=== PATIENT | male | born 1985 | race Caucasian/White ===

== ENCOUNTER 2017-01-17 16:10 | Inpatient (IN) | payer OTHER ==
[2017-01-17 16:44] VITALS: BMI 21.9
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
[2017-01-17] MEDS ORDERED: ACETAMINOPHEN 325 MG TABLET (FP) PO PRN (17:45)
[2017-01-17] MEDS ORDERED: guaiFENesin/D-METHORPHAN HB 10 ML UNIT-DOSE CUPS PO PRN (17:45)
[2017-01-17] MEDS ORDERED: MAGNESIUM CITRATE 300 ML BOTTLE PO PRN (17:45)
[2017-01-17] MEDS ORDERED: NICOTINE POLACRILEX 2 MG GUM BUC PRN (17:45)
[2017-01-17] MEDS ORDERED: MAGNESIUM HYDROX 2400MG/30ML ORAL SUSPENSION 30 ML CUP PO PRN (17:45)
[2017-01-17] MEDS ORDERED: MENTHOL/PHENOL 1 EACH UD MM PRN (17:45)
[2017-01-17] MEDS ORDERED: P-EPHED 60MG/TRIPROLIDI 2.5MG TABLET PO PRN (17:45)
[2017-01-17] MEDS ORDERED: METHADONE HCL 10 MG TABLET (FOR DETOX USE ONLY) PO ONE ×2 (17:45→23:00)
[2017-01-17] MEDS ORDERED: LOPERAMIDE HCL 2 MG CAPSULE PO PRN (17:45)
[2017-01-17] MEDS: diazePAM 5 MG TABLET PO PRN (19:55)
[2017-01-17] MEDS: NICOTINE 21 MG/24 HOURS TOPICAL PATCH TD SCH (19:56)
[2017-01-17] MEDS: diphenhydrAMINE HCL 50 MG CAPSULE PO PRN (22:19)
[2017-01-17] MEDS: THIAMINE HCL 100 MG TABLET (FP) PO SCH (22:19)
[2017-01-18] MEDS: diazePAM 5 MG TABLET PO PRN ×4 (02:56→22:03)
[2017-01-18] MEDS: hydrOXYzine PAMOATE 50 MG CAPSULE (FP) PO PRN ×2 (05:21→18:54)
[2017-01-18] MEDS ORDERED: METHADONE HCL 10 MG TABLET (FOR DETOX USE ONLY) PO ONE (10:00)
[2017-01-18] MEDS: NICOTINE 21 MG/24 HOURS TOPICAL PATCH TD SCH (10:13)
[2017-01-18] MEDS: PRENATAL VITAMINS W/ FOLIC ACID TABLET (FP) PO SCH (10:13)
--- NOTE | 2017-01-18 10:59 | EKG ---
Test Reason : Blood Pressure : / mmHG Vent. Rate : 063 BPM Atrial Rate : 063 BPM P-R Int : 146 ms QRS Dur : 100 ms QT Int : 400 ms P-R-T Axes : 062 079 067 degrees QTc Int : 409 ms NORMAL SINUS RHYTHM NORMAL ECG NO PREVIOUS ECGS AVAILABLE Confirmed by MARIA ESTHER MCCRACKEN MD ([id number]) on 01/18/2017 10:58:28 AM Referred By: Confirmed By:MARIA ESTHER MCCRACKEN MD
--- NOTE | 2017-01-18 13:57 | PN ---
BHS COWS - Scale Resting Pulse: 0= MS 80 or Below Sweatin= Beads of Sweat on Face Restless Observation: 3= Extraneous Movement Pupil Size: 0= Normal to Room Light Bone or Joint Aches: 2= Severe Diffuse Aches Runny Nose/ Eye Tearin= Runny Nose/Eyes GI Upset > 30mins: 3= Vomiting/Diarrhea Tremor Observation of Outstretched Hands: 2= Slight Tremor Visible Yawning Observation: 0= None Anxiety or Irritability: 2=Irritable/Anxious Goose Flesh Skin: 0=Smooth Skin COWS Score: 17 S Progress Note (SOAP) Subjective: N/V, stomach ache, sweating, interrupted sleep Objective: 01/18/17 13:55 Last Vital Signs Temp Pulse Resp BP Pulse Ox 97.0 F L 68 20 129/86 01/18/17 13:28 01/18/17 13:28 01/18/17 13:28 01/18/17 13:28 Admission labs in progress Assessment: 01/18/17 13:56 Withdrawal symptoms Plan: Continue detox, encouraged to drink lots of water Follow up on admission lab results (in progress)
[2017-01-18 14:19] LABS: MCH 29.1 pg (25.7-33.7); MCHC 33.1 g/dl (32.0-35.9); MEAN CELL VOLUME 87.9 fl (80-96); MEAN PLT VOLUME 9.4 fl (7.5-11.1); PLATELET COUNT 192 K/MM3 (134-434); RDW 14.1 % (11.9-15.9); WHITE BLOOD COUNT 8.9 K/mm3 (4.0-10.0)
[2017-01-18 14:21] LABS: URINE APPEARANCE CLEAR; URINE BILIRUBIN NEGATIVE (NEGATIVE); URINE BLOOD NEGATIVE (NEGATIVE); URINE COLOR LTYELLOW; URINE GLUCOSE (UA) NEGATIVE (NEGATIVE); URINE KETONE NEGATIVE (NEGATIVE); URINE LEUK ESTERASE NEGATIVE (NEGATIVE); URINE NITRITE NEGATIVE (NEGATIVE); URINE PROTEIN NEGATIVE (NEGATIVE); URINE UROBILINOGEN NEGATIVE E.U./dl (0.2-1.0)
[2017-01-18 14:30] LABS: CALCIUM 9.6 mg/dL (8.5-10.1)
[2017-01-18 14:36] LABS: ALBUMIN 4.1 g/dl (3.4-5.0); ALK PHOS 77 U/L (45-117); ANION GAP 12 (8-16); BILIRUBIN,TOTAL 0.6 mg/dL (0.2-1.0); CO2 28 mmol/L (21-32); CREATININE 1.1 mg/dL (0.7-1.3); GLUCOSE,RANDOM 71 mg/dL (74-106); SGOT/AST 9 U/L (15-37); SGPT/ALT 19 U/L (12-78); TOT PROT 7.5 g/dl (6.4-8.2)
[2017-01-18 14:41] LABS: HIV 1 & 2 AB NEGATIVE; HIV 1 AGp24 NEGATIVE
[2017-01-18 14:59] LABS: SICKLE CELL SCREEN NEGATIVE (NEGATIVE)
[2017-01-18] MEDS: THIAMINE HCL 100 MG TABLET (FP) PO SCH (22:03)
[2017-01-18] MEDS: diphenhydrAMINE HCL 50 MG CAPSULE PO PRN (22:04)
[2017-01-19] MEDS: diazePAM 5 MG TABLET PO PRN ×4 (02:43→22:05)
--- NOTE | 2017-01-19 09:00 | PN ---
S COWS - Scale Resting Pulse: 0= RI 80 or Below Sweatin= Chills/Flushing Restless Observation: 3= Extraneous Movement Pupil Size: 2= Moderately Dilated Bone or Joint Aches: 4=Acute Joint/Muscle Pain Runny Nose/ Eye Tearin= Nasal Congestion GI Upset > 30mins: 1= Stomach Cramp Tremor Observation of Outstretched Hands: 1= Tremor [place], Not Seen Yawning Observation: 1= 1-2x During Session Anxiety or Irritability: 2=Irritable/Anxious Goose Flesh Skin: 0=Smooth Skin COWS Score: 16 S Progress Note (SOAP) Subjective: ANXIETY,SWEATS,MUSCLE CRAMPS,INTERMITTENT SLEEP-BENADRYL NOT EFFECTIVE. Objective: 01/19/17 10:31 Vital Signs Temperature 97.8 F 01/19/17 09:19 Pulse Rate 63 01/19/17 09:19 Respiratory Rate 18 01/19/17 09:19 Blood Pressure 108/69 01/19/17 09:19 O2 Sat by Pulse Oximetry (%) Laboratory Last Values WBC 8.9 K/mm3 (4.0-10.0) 01/18/17 07:12 RBC 5.15 M/mm3 (4.00-5.60) 01/18/17 07:12 Hgb 15.0 GM/dL (11.7-16.9) 01/18/17 07:12 Hct 45.2 % (35.4-49) 01/18/17 07:12 MCV 87.9 fl (80-96) 01/18/17 07:12 MCHC 33.1 g/dl (32.0-35.9) 01/18/17 07:12 RDW 14.1 % (11.9-15.9) 01/18/17 07:12 Plt Count 192 K/MM3 (134-434) 01/18/17 07:12 MPV 9.4 fl (7.5-11.1) 01/18/17 07:12 Sickle Cell Screen Negative (NEGATIVE) 01/18/17 07:12 Sodium 144 mmol/L (136-145) 01/18/17 07:12 Potassium 3.9 mmol/L (3.5-5.1) 01/18/17 07:12 Chloride 104 mmol/L (98-107) 01/18/17 07:12 Carbon Dioxide 28 mmol/L (21-32) 01/18/17 07:12 Anion Gap 12 (8-16) 01/18/17 07:12 BUN 9 mg/dL (7-18) 01/18/17 07:12 Creatinine 1.1 mg/dL (0.7-1.3) 01/18/17 07:12 Creat Clearance w eGFR > 60 (>60) 01/18/17 07:12 Random Glucose 71 mg/dL (74-106) L 01/18/17 07:12 Calcium 9.6 mg/dL (8.5-10.1) 01/18/17 07:12 Total Bilirubin 0.6 mg/dL (0.2-1.0) 01/18/17 07:12 AST 9 U/L (15-37) L 01/18/17 07:12 ALT 19 U/L (12-78) 01/18/17 07:12 Alkaline Phosphatase 77 U/L (45-117) 01/18/17 07:12 Total Protein 7.5 g/dl (6.4-8.2) 01/18/17 07:12 Albumin 4.1 g/dl (3.4-5.0) 01/18/17 07:12 Urine Color Ltyellow 01/18/17 07:12 Urine Appearance Clear 01/18/17 07:12 Urine pH 6.0 (5.0-8.0) 01/18/17 07:12 Ur Specific [place] 1.015 (1.005-1.025) 01/18/17 07:12 Urine Protein Negative (NEGATIVE) 01/18/17 07:12 Urine Glucose (UA) Negative (NEGATIVE) 01/18/17 07:12 Urine Ketones Negative (NEGATIVE) 01/18/17 07:12 Urine Blood Negative (NEGATIVE) 01/18/17 07:12 Urine Nitrite Negative (NEGATIVE) 01/18/17 07:12 Urine Bilirubin Negative (NEGATIVE) 01/18/17 07:12 Urine Urobilinogen Negative E.U./dl (0.2-1.0) 01/18/17 07:12 Ur Leukocyte Esterase Negative (NEGATIVE) 01/18/17 07:12 RPR Titer Nonreactive (NONREACTIVE) 01/18/17 07:12 HIV 1&2 Antibody Screen Negative 01/18/17 07:12 HIV P24 Antigen Negative 01/18/17 07:12 Assessment: 01/19/17 10:31 WITHDRAWAL SX Plan: CONTINUE DETOX D/C BENADRYL VISTARIL AND FLEXERIL DIRECTED
[2017-01-19] MEDS ORDERED: METHADONE HCL 5 MG TABLET (FOR DETOX USE ONLY) PO ONE (10:00)
[2017-01-19] MEDS: PRENATAL VITAMINS W/ FOLIC ACID TABLET (FP) PO SCH (10:09)
[2017-01-19] MEDS: IBUPROFEN 400 MG TABLET (FP) PO PRN (10:10)
[2017-01-19] MEDS: NICOTINE 21 MG/24 HOURS TOPICAL PATCH TD SCH (10:12)
[2017-01-19] MEDS ORDERED: hydrOXYzine PAMOATE 50 MG CAPSULE (FP) PO PRN (10:28)
[2017-01-19] MEDS: CYCLOBENZAPRINE HCL 10 MG TABLET (FP) PO SCH ×2 (14:47→22:04)
[2017-01-19] MEDS: MAG HYDROX/AL HYDROX/SIMETH 30 ML UNIT-DOSE CUP PO PRN (14:48)
[2017-01-19] MEDS: THIAMINE HCL 100 MG TABLET (FP) PO SCH (22:04)
[2017-01-20] MEDS: hydrOXYzine PAMOATE 50 MG CAPSULE (FP) PO PRN (01:33)
[2017-01-20] MEDS: MAG HYDROX/AL HYDROX/SIMETH 30 ML UNIT-DOSE CUP PO PRN ×3 (01:36→20:53)
[2017-01-20] MEDS: diazePAM 5 MG TABLET PO PRN ×4 (02:13→14:22)
[2017-01-20] MEDS: CYCLOBENZAPRINE HCL 10 MG TABLET (FP) PO SCH ×3 (05:36→22:03)
[2017-01-20] MEDS: PRENATAL VITAMINS W/ FOLIC ACID TABLET (FP) PO SCH (09:45)
[2017-01-20] MEDS: NICOTINE 21 MG/24 HOURS TOPICAL PATCH TD SCH (09:45)
[2017-01-20] MEDS ORDERED: METHADONE HCL 5 MG TABLET (FOR DETOX USE ONLY) PO ONE (10:00)
--- NOTE | 2017-01-20 10:31 | PN ---
BHS Progress Note (SOAP) Subjective: ANXIETY,HEARTBURN,INTERMITTENT SLEEP. Objective: 01/20/17 10:31 Vital Signs Temperature 97.0 F L 01/20/17 09:27 Pulse Rate 78 01/20/17 09:27 Respiratory Rate 18 01/20/17 09:27 Blood Pressure 137/87 01/20/17 09:27 O2 Sat by Pulse Oximetry (%) Assessment: 01/20/17 10:31 WITHDRAWAL SX Plan: CONTINUE DETOX
--- NOTE | 2017-01-20 14:00 | CONSULT ---
[facility] Psychiatric Consult - Data Date of interview: 01/20/17 Admission source: [facility] Identifying data: First admission to [facility] for this 31 y/o male seeking detox treatment for heroin,cocaine (crack) and marijuana dependence) .Patient is ,a father of one,homeless,unemployed and supported on food stamps. Substance Abuse History: - Smoking Cessation. Smoking history: Current every day smoker. Aproximately how many cigarettes per day: 20. Hx Chewing Tobacco Use: No. Initiated information on smoking cessation: Yes. 'Breaking Loose' booklet given: 01/17/17. - Substance & Tx. History. Hx Alcohol Use: No. Hx Substance Use: Yes. Substance Use Type: Cocaine, Heroin, Marijuana. Hx Substance Use Treatment: Yes (detox once,buprenorphine maitenance last year). - Substances Abused. Crack. Route: Smoking. Frequency: Daily. Amount used : 2 1/2 gm. Age of first use: 13. Date of Last Use: 01/15/17. Heroin. Route: Inhalation. Frequency: Daily. Amount used: 6-10 bags. Age of first use : 25 (started percocet at 21 y/o). Date of Last Use: 01/16/17. Marijuana/ Hashish. Route: Smoking. Frequency: 1-3 times last 30 days. Amount used: few pulls. Age of first use: 18. Date of Last Use: 01/16/17. Confirmed by patient. Medical History: History of arthroscopic surgery (right knee) and two sessions of hemodialysis (acute renal failure due to rhabdomyolysis). Psychiatric History: No reported history of psychiatric hospitalizations.No history of psychiatric OPD care.Mr Bhat denies being on any psychotropic medications (with the exception of opiates or xanax).Patient denies history of suicide attempts. Physical/Sexual Abuse/Trauma History: Patient denies. Additional Comment: Urine Drug Screen Results: THC-Marijuana, ABBE-Cocaine, OPI- Opiates.Noted. Mental Status Exam - Mental Status Exam Alert and Oriented to: Time, Place, Person Cognitive Function: Good Patient Appearance: Unkempt, Disheveled Mood: Anxious, Apprehensive Affect: Appropriate, Normal Range Patient Behavior: Fatigued, Cooperative (medication-seeking) Speech Pattern: Clear, Appropriate Voice Loudness: Normal Thought Process: Goal Oriented Thought Disorder: Not Present Hallucinations: Denies Suicidal Ideation: Denies Homicidal Ideation: Denies Insight/Judgement: Poor Sleep: Poorly, Difficulty falling asleep Appetite: Good Muscle strength/Tone: Normal Gait/Station: Normal Psychiatric Findings - Problem List ([place] 1, 2,3) (1) Cannabis dependence, uncomplicated Current Visit: Yes Status: Acute (2) Cocaine dependence, uncomplicated Current Visit: Yes Status: Acute (3) Opioid dependence with withdrawal Current Visit: Yes Status: Acute (4) Nicotine dependence Current Visit: Yes Status: Acute (5) Substance induced mood disorder Current Visit: Yes Status: Acute (6) Insomnia Current Visit: Yes Status: Acute - Initial Treatment Plan Initial Treatment Plan: Psychoeducation.Detoxification.Ambien 10 mg po hs prn.Patient is made aware of potential for parasomnias.Observation.No script for ambien will be issued at discharge (patient aware).He is in agreement with this careplan.
[2017-01-20] MEDS: ZOLPIDEM TARTRATE 10 MG TABLET (PARK CARE ONLY) PO PRN (22:01)
[2017-01-20] MEDS: THIAMINE HCL 100 MG TABLET (FP) PO SCH (22:01)
[2017-01-21] MEDS: hydrOXYzine PAMOATE 50 MG CAPSULE (FP) PO PRN ×3 (01:06→10:06)
[2017-01-21] MEDS: CYCLOBENZAPRINE HCL 10 MG TABLET (FP) PO SCH ×3 (05:22→22:05)
[2017-01-21] MEDS: IBUPROFEN 400 MG TABLET (FP) PO PRN (05:25)
[2017-01-21] MEDS ORDERED: METHADONE HCL 10 MG TABLET (FOR DETOX USE ONLY) PO ONE (10:00)
[2017-01-21] MEDS: NICOTINE 21 MG/24 HOURS TOPICAL PATCH TD SCH (10:06)
[2017-01-21] MEDS: PRENATAL VITAMINS W/ FOLIC ACID TABLET (FP) PO SCH (10:06)
--- NOTE | 2017-01-21 10:11 | PN ---
BHS Progress Note (SOAP) Subjective: ANXIETY, DECREASED BODY ACHES,SWEATS, INTERMITTENT SLEEP. Objective: 01/21/17 10:11 Vital Signs Temperature 97.7 F 01/21/17 09:20 Pulse Rate 96 H 01/21/17 09:20 Respiratory Rate 20 01/21/17 09:20 Blood Pressure 125/81 01/21/17 09:20 O2 Sat by Pulse Oximetry (%) Assessment: 01/21/17 10:11 WITHDRAWAL SX Plan: CONTINUE DETOX
[2017-01-21] MEDS: MAG HYDROX/AL HYDROX/SIMETH 30 ML UNIT-DOSE CUP PO PRN ×2 (13:31→21:16)
[2017-01-21] MEDS ORDERED: LIDOCAINE VISCOUS 2% ORAL/TOP 20 ML UNIT-DOSE CUP MM PRN (21:48)
[2017-01-21] MEDS: THIAMINE HCL 100 MG TABLET (FP) PO SCH (22:05)
[2017-01-21] MEDS: ZOLPIDEM TARTRATE 10 MG TABLET (PARK CARE ONLY) PO PRN (22:06)
[2017-01-22] MEDS: hydrOXYzine PAMOATE 50 MG CAPSULE (FP) PO PRN (01:21)
[2017-01-22] MEDS: IBUPROFEN 400 MG TABLET (FP) PO PRN (01:21)
[2017-01-22] MEDS ORDERED: METHADONE HCL 5 MG TABLET (FOR DETOX USE ONLY) PO ONE (06:00)
[2017-01-22] MEDS: CYCLOBENZAPRINE HCL 10 MG TABLET (FP) PO SCH (06:00)
[2017-01-22] MEDS: PRENATAL VITAMINS W/ FOLIC ACID TABLET (FP) PO SCH (09:58)
[2017-01-22] MEDS: NICOTINE 21 MG/24 HOURS TOPICAL PATCH TD SCH (09:59)
--- NOTE | 2017-01-22 09:59 | DS ---
[facility] Detox Discharge Summary Admission Date: 01/17/17 Discharge Date: 01/22/17 - History Present History: Cannabis Dependence, Cocaine Dependence, Opioid Dependence Additional Comments: DETOX COMPLETED. ALERT O X 3. NAD. Pertinent Past History: INSOMNIA - Physical Exam Results Vital Signs: Vital Signs Temperature 97.8 F 01/22/17 06:42 Pulse Rate 99 H 01/22/17 06:42 Respiratory Rate 18 01/22/17 06:42 Blood Pressure 120/80 01/22/17 06:42 O2 Sat by Pulse Oximetry (%) Pertinent Admission Physical Exam Findings: WITHDRAWAL SX Laboratory Last Values WBC 8.9 K/mm3 (4.0-10.0) 01/18/17 07:12 RBC 5.15 M/mm3 (4.00-5.60) 01/18/17 07:12 Hgb 15.0 GM/dL (11.7-16.9) 01/18/17 07:12 Hct 45.2 % (35.4-49) 01/18/17 07:12 MCV 87.9 fl (80-96) 01/18/17 07:12 MCHC 33.1 g/dl (32.0-35.9) 01/18/17 07:12 RDW 14.1 % (11.9-15.9) 01/18/17 07:12 Plt Count 192 K/MM3 (134-434) 01/18/17 07:12 MPV 9.4 fl (7.5-11.1) 01/18/17 07:12 Sickle Cell Screen Negative (NEGATIVE) 01/18/17 07:12 Sodium 144 mmol/L (136-145) 01/18/17 07:12 Potassium 3.9 mmol/L (3.5-5.1) 01/18/17 07:12 Chloride 104 mmol/L (98-107) 01/18/17 07:12 Carbon Dioxide 28 mmol/L (21-32) 01/18/17 07:12 Anion Gap 12 (8-16) 01/18/17 07:12 BUN 9 mg/dL (7-18) 01/18/17 07:12 Creatinine 1.1 mg/dL (0.7-1.3) 01/18/17 07:12 Creat Clearance w eGFR > 60 (>60) 01/18/17 07:12 Random Glucose 71 mg/dL (74-106) L 01/18/17 07:12 Calcium 9.6 mg/dL (8.5-10.1) 01/18/17 07:12 Total Bilirubin 0.6 mg/dL (0.2-1.0) 01/18/17 07:12 AST 9 U/L (15-37) L 01/18/17 07:12 ALT 19 U/L (12-78) 01/18/17 07:12 Alkaline Phosphatase 77 U/L (45-117) 01/18/17 07:12 Total Protein 7.5 g/dl (6.4-8.2) 01/18/17 07:12 Albumin 4.1 g/dl (3.4-5.0) 01/18/17 07:12 Urine Color Ltyellow 01/18/17 07:12 Urine Appearance Clear 01/18/17 07:12 Urine pH 6.0 (5.0-8.0) 01/18/17 07:12 Ur Specific [place] 1.015 (1.005-1.025) 01/18/17 07:12 Urine Protein Negative (NEGATIVE) 01/18/17 07:12 Urine Glucose (UA) Negative (NEGATIVE) 01/18/17 07:12 Urine Ketones Negative (NEGATIVE) 01/18/17 07:12 Urine Blood Negative (NEGATIVE) 01/18/17 07:12 Urine Nitrite Negative (NEGATIVE) 01/18/17 07:12 Urine Bilirubin Negative (NEGATIVE) 01/18/17 07:12 Urine Urobilinogen Negative E.U./dl (0.2-1.0) 01/18/17 07:12 Ur Leukocyte Esterase Negative (NEGATIVE) 01/18/17 07:12 RPR Titer Nonreactive (NONREACTIVE) 01/18/17 07:12 HIV 1&2 Antibody Screen Negative 01/18/17 07:12 HIV P24 Antigen Negative 01/18/17 07:12 - Treatment Hospital Course: Detox Protocol Followed, Detoxed Safely, Responded well, Discharged Condition Good, Rehab Referral Accepted Patient has Accepted a Rehab Referral to: [facility] - Medication Discharge Medications: Ambulatory Orders NK [No Known Home Medication] 01/17/17 - Diagnosis (1) Cannabis dependence, uncomplicated Current Visit: Yes Status: Acute (2) Cocaine dependence, uncomplicated Current Visit: Yes Status: Acute (3) Insomnia Current Visit: Yes Status: Acute (4) Nicotine dependence Current Visit: Yes Status: Acute Qualifiers: Substance use status: in withdrawal (5) Opioid dependence with withdrawal Current Visit: Yes Status: Acute (6) Substance induced mood disorder Current Visit: Yes Status: Acute - AMA Did Patient Leave Against Medical Advice: No
[2017-01-22 10:40] VITALS: BP 131/86; PULSE 102; TEMP 97.3
== END 2017-01-22 11:59 | disposition other institution (70) | DRG 773 ==
LOC: YASAS 16:10 → Y3N 17:27
PROVIDERS: ADMIT Internal Medicine; ATTEND Internal Medicine
PROC: HZ2ZZZZ Detoxification Services for Substance Abuse Treatment (ICD-10-PCS; principal; 2017-01-22)
DX: F11.20 Opioid dependence, uncomplicated (principal); F14.20 Cocaine dependence, uncomplicated; F12.20 Cannabis dependence, uncomplicated; F17.210 Nicotine dependence, cigarettes, uncomplicated; F19.24 Other psychoactive substance dependence with psychoactive substance-induced mood disorder; G47.00 Insomnia, unspecified
CPT/HCPCS: 36415; 80053; 81003; 85027; 85660; 86593; 87389; 93005; 93010

== ENCOUNTER 2017-01-22 12:21 | Inpatient (IN) | payer OTHER ==
[2017-01-22] MEDS ORDERED: LOPERAMIDE HCL 2 MG CAPSULE PO PRN (12:32)
[2017-01-22] MEDS ORDERED: MAGNESIUM CITRATE 300 ML BOTTLE PO PRN (12:32)
[2017-01-22] MEDS ORDERED: MAGNESIUM HYDROX 2400MG/30ML ORAL SUSPENSION 30 ML CUP PO PRN (12:32)
[2017-01-22] MEDS ORDERED: guaiFENesin/D-METHORPHAN HB 10 ML UNIT-DOSE CUPS PO PRN (12:32)
[2017-01-22] MEDS ORDERED: MENTHOL/PHENOL 1 EACH UD MM PRN (12:32)
[2017-01-22] MEDS ORDERED: P-EPHED 60MG/TRIPROLIDI 2.5MG TABLET PO PRN (12:32)
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
--- NOTE | 2017-01-22 13:58 | HP ---
Psychiatrist Admission - Data Date of interview: 01/22/17 Admission source: [facility] Identifying data: Patient is 31 year old ,a father of one,homeless, unemployed and supported on food stamps. This is the first 5n inpatient reabilitation admission. Medical History: History of arthroscopic surgery (right knee) and two sessions of hemodialysis due to acute renal failure ( rhabdomyolysis).Smokes cigarettes 20 a day. Psychiatric History: Patient denies history of psyhciatric treatment, however reports he is unable to sleep, very anxious and having mood swings. Was seen by and put on Ambien, which patient reports was not effective, his sleep is interrupted and unfreshful. Physical/Sexual Abuse/Trauma History: Denies history of physical, sexual, and vebral abuse. Allergies/Adverse Reactions: Allergies Allergy/AdvReac Type Severity Reaction Status Date / Time No Known Allergies Allergy Verified 03/22/15 17:19 Date of last physical exam: 01/17/17 Concur with the findings of this exam: Yes - Substance Abuse/Tx History Hx Alcohol Use: No Hx Substance Use: Yes Substance Use Type: Cocaine (3-4 gr daily), Heroin (15 bags aily), Marijuana (2 times a week), Tranquilizers (xanax on and off) Hx Substance Use Treatment: Yes - Admission Criteria Previous failed treatment: Yes Poor recovery environment: Yes Comorbidities: Yes Lacks judgement: Yes Mental Status Exam - Mental Status Exam Alert and Oriented to: Time, Place, Person Cognitive Function: Grossly Intact Patient Appearance: Well Groomed Mood: Anxious Affect: Appropriate, Mood Congruent Patient Behavior: Appropriate, Cooperative Speech Pattern: Clear, Appropriate Voice Loudness: Normal Thought Process: Intact, Goal Oriented Thought Disorder: Not Present Hallucinations: Denies Suicidal Ideation: Denies Homicidal Ideation: Denies Insight/Judgement: Fair Sleep: Poorly, Difficulty falling asleep Appetite: Poor, Weight loss Muscle strength/Tone: Normal Gait/Station: Normal Psychiatric Findings - Problem List ([place] 1, 2,3) (1) Cocaine dependence, uncomplicated Current Visit: No Status: Acute (2) Insomnia Current Visit: No Status: Acute (3) Nicotine dependence Current Visit: No Status: Acute Qualifiers: Substance use status: in withdrawal (4) Substance induced mood disorder Current Visit: No Status: Acute (5) Sedative, hypnotic or anxiolytic abuse Current Visit: Yes Status: Acute - Initial Treatment Plan Initial Treatment Plan: discussed indications and properties of gabapentin and belsomra with the patient , he agreed to start, will continue to monitor progress.
[2017-01-22] MEDS: GABAPENTIN 100 MG CAPSULE (FP) PO SCH ×2 (14:39→21:15)
[2017-01-22] MEDS: SUVOREXANT 10 MG TABLET PO PRN (21:15)
[2017-01-22] MEDS: THIAMINE HCL 100 MG TABLET (FP) PO SCH (21:15)
[2017-01-23] MEDS: diphenhydrAMINE HCL 50 MG CAPSULE PO PRN (00:29)
[2017-01-23] MEDS: GABAPENTIN 100 MG CAPSULE (FP) PO SCH ×3 (06:37→21:15)
[2017-01-23] MEDS: ACETAMINOPHEN 325 MG TABLET (FP) PO PRN (07:57)
[2017-01-23] MEDS: NICOTINE 21 MG/24 HOURS TOPICAL PATCH TD SCH (09:42)
[2017-01-23] MEDS: PRENATAL VITAMINS W/ FOLIC ACID TABLET (FP) PO SCH (09:42)
[2017-01-23] MEDS: IBUPROFEN 400 MG TABLET (FP) PO PRN ×2 (09:44→21:18)
[2017-01-23] MEDS: THIAMINE HCL 100 MG TABLET (FP) PO SCH (21:15)
[2017-01-23] MEDS: SUVOREXANT 10 MG TABLET PO PRN (21:16)
[2017-01-24] MEDS: ACETAMINOPHEN 325 MG TABLET (FP) PO PRN (00:14)
[2017-01-24] MEDS: diphenhydrAMINE HCL 50 MG CAPSULE PO PRN ×2 (00:14→21:16)
[2017-01-24] MEDS: hydrOXYzine PAMOATE 50 MG CAPSULE (FP) PO PRN (05:50)
[2017-01-24] MEDS: GABAPENTIN 100 MG CAPSULE (FP) PO SCH ×3 (06:11→21:16)
[2017-01-24] MEDS: PRENATAL VITAMINS W/ FOLIC ACID TABLET (FP) PO SCH (09:48)
[2017-01-24] MEDS: NICOTINE 21 MG/24 HOURS TOPICAL PATCH TD SCH (09:49)
[2017-01-24] MEDS: MAG HYDROX/AL HYDROX/SIMETH 30 ML UNIT-DOSE CUP PO PRN (13:29)
[2017-01-24] MEDS: THIAMINE HCL 100 MG TABLET (FP) PO SCH (21:16)
[2017-01-24] MEDS: SUVOREXANT 10 MG TABLET PO PRN (21:16)
[2017-01-25] MEDS: diphenhydrAMINE HCL 50 MG CAPSULE PO PRN ×2 (00:36→21:11)
[2017-01-25] MEDS: ACETAMINOPHEN 325 MG TABLET (FP) PO PRN (00:36)
[2017-01-25] MEDS: IBUPROFEN 400 MG TABLET (FP) PO PRN ×2 (03:51→15:49)
[2017-01-25] MEDS: GABAPENTIN 100 MG CAPSULE (FP) PO SCH ×3 (06:25→21:10)
[2017-01-25] MEDS ORDERED: LIDOCAINE VISCOUS 2% ORAL/TOP 20 ML UNIT-DOSE CUP MM PRN (07:53)
[2017-01-25] MEDS: PRENATAL VITAMINS W/ FOLIC ACID TABLET (FP) PO SCH (09:47)
[2017-01-25] MEDS: NICOTINE 21 MG/24 HOURS TOPICAL PATCH TD SCH (09:47)
[2017-01-25] MEDS: MAG HYDROX/AL HYDROX/SIMETH 30 ML UNIT-DOSE CUP PO PRN (09:49)
--- NOTE | 2017-01-25 14:25 | PN ---
Psychiatric Progress Note Vital Signs: Vital Signs Period Temp Pulse Resp BP Sys/Yip Pulse Ox Last 24 Hr 97.3 F 100 16 127/83 Date of Session: 01/25/17 Chief Complaint:: "insomnia' HPI: Patient is addressing cocaine, opioid dependence, sedative-hypnotic dependence, comorbid Insomnia, Substance induced mood siorder. ROS: WNL Current Medications: Active Medications Generic Name Dose Route Start Last Admin Trade Name Freq PRN Reason Stop Dose Admin Acetaminophen 650 mg 01/22/17 12:32 01/25/17 00:36 Tylenol - PO 650 mg Q4H PRN Administration FEVER OR PAIN Al Hydroxide/Mg Hydroxide 30 ml 01/22/17 12:32 01/25/17 09:49 Mylanta Oral Suspension - PO 30 ml Q6H PRN Administration DYSPEPSIA Diphenhydramine HCl 50 mg 01/22/17 12:32 01/25/17 00:36 Benadryl - PO 50 mg HSMR1 PRN Administration FOR ITCHING Eucalyptus/Menthol/Phenol/Sorbitol 1 each 01/22/17 12:32 Cepastat Lozenge - MM Q4H PRN SORE THROAT Guaifenesin 10 ml 01/22/17 12:32 Robitussin Dm - PO Q6H PRN COUGH Hydroxyzine Pamoate 50 mg 01/24/17 05:35 01/24/17 05:50 Vistaril - PO 50 mg Q6H PRN Administration FOR ITCHING Ibuprofen 400 mg 01/22/17 12:32 01/25/17 03:51 Motrin - PO 400 mg Q6H PRN Administration PAIN Lidocaine HCl 20 ml 01/25/17 07:53 Xylocaine 2% Viscous Oral - MM Q6HPO PRN ORAL PAIN/MOUTH SORES Loperamide HCl 4 mg 01/22/17 12:32 Imodium - PO Q6H PRN DIARRHEA Magnesium Hydroxide 30 ml 01/22/17 12:32 Milk Of Magnesia - PO DAILY PRN CONSTIPATION Nicotine 21 mg 01/23/17 10:00 01/25/17 09:47 Nicoderm Patch - TD 21 mg DAILY ELIANA Administration Multivit/Folic Acid/Iron 1 tab 01/23/17 10:00 01/25/17 09:47 Vitamins (Sjr) - PO 1 tab DAILY ELIANA Administration Pseudoephedrine/Triprolidine 1 combo 01/22/17 12:32 Actifed - PO TID PRN NASAL CONGESTION Thiamine HCl 100 mg 01/22/17 22:00 01/24/17 21:16 Vitamin B1 - PO 100 mg HS ELIANA Administration Current Side Effect: No Lab tests ordered: No Lab tests reviewed: Yes Provider note:: Patient reports has been not able to sleep, even with Belsomra, he reports his sleep is interrupted and next day he has a difficult time to stay in groups, he also c/o anxiety, reviewed his current medications, side- effects and benefits discussed, will increase Gabapentin 200 mg po tid, add Sinequan 25 mg po hs, continue to monitor progress. Total face to face time:: 30 Mental Status Exam - Mental Status Exam Alert and Oriented to: Time, Place, Person Cognitive Function: Good Patient Appearance: Well Groomed Mood: Sad, Anxious Affect: Appropriate, Mood Congruent Patient Behavior: Appropriate, Cooperative Speech Pattern: Clear, Appropriate Voice Loudness: Normal Thought Process: Goal Oriented Thought Disorder: Not Present Hallucinations: Denies Suicidal Ideation: Denies Homicidal Ideation: Denies Insight/Judgement: Fair Sleep: Poorly, Difficulty falling asleep Appetite: Fair Muscle strength/Tone: Normal Gait/Station: Normal Psychiatric Treatment Plan - Problem List (1) Cocaine dependence, uncomplicated Current Visit: No (2) Insomnia Current Visit: No (3) Nicotine dependence Current Visit: No Qualifiers: Substance use status: in withdrawal (4) Substance induced mood disorder Current Visit: No (5) Sedative, hypnotic or anxiolytic abuse Current Visit: Yes (6) Opioid dependence Current Visit: Yes
[2017-01-25] MEDS ORDERED: GABAPENTIN 100 MG CAPSULE (FP) PO SCH (14:49)
[2017-01-25] MEDS: THIAMINE HCL 100 MG TABLET (FP) PO SCH (21:11)
[2017-01-25] MEDS ORDERED: DOXEPIN HCL 25 MG CAPSULE PO SCH (22:00)
[2017-01-25] MEDS: hydrOXYzine PAMOATE 50 MG CAPSULE (FP) PO PRN (23:33)
[2017-01-26] MEDS: diphenhydrAMINE HCL 50 MG CAPSULE PO PRN ×2 (00:59→21:12)
[2017-01-26] MEDS: IBUPROFEN 400 MG TABLET (FP) PO PRN (01:01)
[2017-01-26] MEDS: hydrOXYzine PAMOATE 50 MG CAPSULE (FP) PO PRN (04:33)
[2017-01-26] MEDS: ACETAMINOPHEN 325 MG TABLET (FP) PO PRN (04:34)
[2017-01-26] MEDS: GABAPENTIN 100 MG CAPSULE (FP) PO SCH ×3 (06:40→21:12)
[2017-01-26] MEDS: NICOTINE 21 MG/24 HOURS TOPICAL PATCH TD SCH (09:45)
[2017-01-26] MEDS: PRENATAL VITAMINS W/ FOLIC ACID TABLET (FP) PO SCH (09:45)
--- NOTE | 2017-01-26 13:37 | PN ---
S Progress Note Note: Patient c/o insomnia, was all night up according to the staff, will increase Sinequan 75 mg , continue to monitor.
[2017-01-26] MEDS: THIAMINE HCL 100 MG TABLET (FP) PO SCH (21:12)
[2017-01-26] MEDS ORDERED: DOXEPIN HCL 25 MG CAPSULE PO SCH (22:00)
[2017-01-27] MEDS: IBUPROFEN 400 MG TABLET (FP) PO PRN ×2 (02:51→22:22)
[2017-01-27] MEDS: GABAPENTIN 100 MG CAPSULE (FP) PO SCH ×4 (07:53→23:46)
[2017-01-27] MEDS: PRENATAL VITAMINS W/ FOLIC ACID TABLET (FP) PO SCH (10:11)
[2017-01-27] MEDS: NICOTINE 21 MG/24 HOURS TOPICAL PATCH TD SCH (10:11)
[2017-01-27] MEDS: THIAMINE HCL 100 MG TABLET (FP) PO SCH (21:12)
[2017-01-27] MEDS: diphenhydrAMINE HCL 50 MG CAPSULE PO PRN (23:44)
[2017-01-28] MEDS: diphenhydrAMINE HCL 50 MG CAPSULE PO PRN (01:06)
[2017-01-28] MEDS: ACETAMINOPHEN 325 MG TABLET (FP) PO PRN (01:08)
[2017-01-28] MEDS: hydrOXYzine PAMOATE 50 MG CAPSULE (FP) PO PRN (02:42)
[2017-01-28] MEDS: GABAPENTIN 100 MG CAPSULE (FP) PO SCH (06:29)
[2017-01-28 06:38] VITALS: BP 142/86; PULSE 69; TEMP 97.6
[2017-01-28] MEDS: PRENATAL VITAMINS W/ FOLIC ACID TABLET (FP) PO SCH (09:59)
[2017-01-28] MEDS: NICOTINE 21 MG/24 HOURS TOPICAL PATCH TD SCH (09:59)
--- NOTE | 2017-01-28 10:06 | PN ---
Psychiatric Progress Note Vital Signs: Vital Signs Period Temp Pulse Resp BP Sys/Yip Pulse Ox Last 24 Hr 97.6 F 69 16-16 142/86 Date of Session: 01/28/17 Chief Complaint:: discharge visit HPI: WNL Current Medications: Active Medications Generic Name Dose Route Start Last Admin Trade Name Freq PRN Reason Stop Dose Admin Acetaminophen 650 mg 01/22/17 12:32 01/28/17 01:08 Tylenol - PO 650 mg Q4H PRN Administration FEVER OR PAIN Al Hydroxide/Mg Hydroxide 30 ml 01/22/17 12:32 01/25/17 09:49 Mylanta Oral Suspension - PO 30 ml Q6H PRN Administration DYSPEPSIA Diphenhydramine HCl 50 mg 01/22/17 12:32 01/28/17 01:06 Benadryl - PO 50 mg HSMR1 PRN Administration FOR ITCHING Eucalyptus/Menthol/Phenol/Sorbitol 1 each 01/22/17 12:32 Cepastat Lozenge - MM Q4H PRN SORE THROAT Gabapentin 200 mg 01/25/17 22:00 01/28/17 06:29 Neurontin - PO 200 mg TID ELIANA Administration Guaifenesin 10 ml 01/22/17 12:32 Robitussin Dm - PO Q6H PRN COUGH Hydroxyzine Pamoate 50 mg 01/24/17 05:35 01/28/17 02:42 Vistaril - PO 50 mg Q6H PRN Administration FOR ITCHING Ibuprofen 400 mg 01/22/17 12:32 01/27/17 22:22 Motrin - PO 400 mg Q6H PRN Administration PAIN Lidocaine HCl 20 ml 01/25/17 07:53 01/25/17 15:50 Xylocaine 2% Viscous Oral - MM 20 ml Q6HPO PRN Administration ORAL PAIN/MOUTH SORES Loperamide HCl 4 mg 01/22/17 12:32 Imodium - PO Q6H PRN DIARRHEA Magnesium Hydroxide 30 ml 01/22/17 12:32 Milk Of Magnesia - PO DAILY PRN CONSTIPATION Nicotine 21 mg 01/23/17 10:00 01/27/17 10:11 Nicoderm Patch - TD Not Given DAILY ELIANA Multivit/Folic Acid/Iron 1 tab 01/23/17 10:00 01/27/17 10:11 Vitamins (Sjr) - PO Not Given DAILY ELIANA Pseudoephedrine/Triprolidine 1 combo 01/22/17 12:32 Actifed - PO TID PRN NASAL CONGESTION Thiamine HCl 100 mg 01/22/17 22:00 01/27/17 21:12 Vitamin B1 - PO Not Given HS ELIANA Current Side Effect: No Lab tests ordered: No Lab tests reviewed: Yes Provider note:: Patient has complete a modifies treatment program and met his short term goals, will conitnue to address his issues at [facility] outpatient treatment program. He understands the negative impact of his addiction on his major life areas and motivated to continue maintain abstinence, patient was encouraged to utilize all supports available to prevent relapses. Scripts for Gabapentin provided. Patient is stable for discharge today. Total face to face time:: 35 Mental Status Exam - Mental Status Exam Alert and Oriented to: Time, Place, Person Cognitive Function: Good Patient Appearance: Well Groomed Mood: Hopeful Affect: Appropriate, Mood Congruent Patient Behavior: Appropriate, Cooperative Speech Pattern: Clear, Appropriate Voice Loudness: Normal Thought Process: Intact, Goal Oriented Thought Disorder: Not Present Hallucinations: Denies Suicidal Ideation: Denies Homicidal Ideation: Denies Insight/Judgement: Fair Sleep: Fair Appetite: Fair Muscle strength/Tone: Normal Gait/Station: Normal Psychiatric Treatment Plan - Problem List (3) Nicotine dependence Qualifiers: Substance use status: in withdrawal
== END 2017-01-28 10:55 | disposition home or self-care (01) | DRG 772 ==
LOC: YASAS 12:21 → Y5N 12:22
PROVIDERS: ADMIT Psychiatry & Neurology Psychiatry; ATTEND Psychiatry & Neurology Psychiatry
PROC: HZ42ZZZ Group Counseling for Substance Abuse Treatment, Cognitive-Behavioral (ICD-10-PCS; principal; 2017-01-28)
DX: F11.20 Opioid dependence, uncomplicated (principal); F14.20 Cocaine dependence, uncomplicated; F17.210 Nicotine dependence, cigarettes, uncomplicated; F13.10 Sedative, hypnotic or anxiolytic abuse, uncomplicated; F19.24 Other psychoactive substance dependence with psychoactive substance-induced mood disorder; G47.00 Insomnia, unspecified
CPT/HCPCS: 70160-TC

== ENCOUNTER 2017-03-02 09:19 | Inpatient (IN) | payer OTHER ==
[2017-03-02 13:59] VITALS: BMI 25.4
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
[2017-03-02] MEDS ORDERED: IBUPROFEN 400 MG TABLET (FP) PO PRN (14:19)
[2017-03-02] MEDS ORDERED: MAG HYDROX/AL HYDROX/SIMETH 30 ML UNIT-DOSE CUP PO PRN (14:19)
[2017-03-02] MEDS ORDERED: MENTHOL/PHENOL 1 EACH UD MM PRN (14:19)
[2017-03-02] MEDS ORDERED: LOPERAMIDE HCL 2 MG CAPSULE PO PRN (14:19)
[2017-03-02] MEDS ORDERED: guaiFENesin/D-METHORPHAN HB 10 ML UNIT-DOSE CUPS PO PRN (14:19)
[2017-03-02] MEDS ORDERED: ACETAMINOPHEN 325 MG TABLET (FP) PO PRN (14:19)
[2017-03-02] MEDS ORDERED: MAGNESIUM HYDROX 2400MG/30ML ORAL SUSPENSION 30 ML CUP PO PRN (14:19)
[2017-03-02] MEDS ORDERED: P-EPHED 60MG/TRIPROLIDI 2.5MG TABLET PO PRN (14:19)
[2017-03-02] MEDS ORDERED: hydrOXYzine PAMOATE 50 MG CAPSULE (FP) PO PRN (14:19)
[2017-03-02] MEDS ORDERED: MAGNESIUM CITRATE 300 ML BOTTLE PO PRN (14:19)
[2017-03-02] MEDS ORDERED: METHADONE HCL 10 MG TABLET (FOR DETOX USE ONLY) PO ONE ×2 (14:45→23:00)
[2017-03-02] MEDS ORDERED: METHADONE HCL 10 MG TABLET (FOR DETOX USE ONLY) ONE (16:48)
[2017-03-02] MEDS: diazePAM 5 MG TABLET PO PRN ×2 (16:57→22:11)
[2017-03-02] MEDS: NICOTINE 21 MG/24 HOURS TOPICAL PATCH TD SCH (16:58)
[2017-03-02] MEDS: THIAMINE HCL 100 MG TABLET (FP) PO SCH (22:10)
[2017-03-02] MEDS: cloNIDine HCL 0.1 MG TABLET PO SCH (22:10)
[2017-03-02] MEDS: diphenhydrAMINE HCL 50 MG CAPSULE PO PRN (22:11)
[2017-03-02 22:57] LABS: URINE APPEARANCE CLEAR; URINE BILIRUBIN NEGATIVE (NEGATIVE); URINE BLOOD NEGATIVE (NEGATIVE); URINE COLOR LTYELLOW; URINE GLUCOSE (UA) NEGATIVE (NEGATIVE); URINE KETONE NEGATIVE (NEGATIVE); URINE LEUK ESTERASE NEGATIVE (NEGATIVE); URINE NITRITE NEGATIVE (NEGATIVE); URINE PROTEIN NEGATIVE (NEGATIVE); URINE UROBILINOGEN NEGATIVE E.U./dl (0.2-1.0)
--- NOTE | 2017-03-03 07:53 | CONSULT ---
[facility] Psychiatric Consult - Data Date of interview: 03/03/17 Admission source: [facility] Identifying data: This is 31 years old male with no psychiatric hospitalization historyn intoxicated with: Opioids, Cocaine, Cannabis and Alcohol intoxication Substance Abuse History: - Smoking Cessation. Smoking history: Current every day smoker. Have you smoked in the past 12 months: Yes. Aproximately how many cigarettes per day: 20. Hx Chewing Tobacco Use: No. Initiated information on smoking cessation: Yes. 'Breaking Loose' booklet given: 03/02/17. - Substance & Tx. History. Hx Alcohol Use: No. Hx Substance Use: Yes. Substance Use Type : Heroin, Marijuana. Hx Substance Use Treatment: Yes (01/17/17 to 01/22/17 [facility] detox,01/22/17 to 01/28/17). - Substances Abused. Heroin. Route: Inhalation. Frequency: Daily. Amount used: 1/2 GRAM. Age of first use: 20. Date of Last Use: 03/01/17 Medical History: Denies any significant medical problem Psychiatric History: Patient reprots no past psychiatric hiostory, no medications taking priorm to admission, As per computer rhere is a history of anxiety and depression Physical/Sexual Abuse/Trauma History: Denies Additional Comment: Observation. Detox unit care protocol Mental Status Exam - Mental Status Exam Alert and Oriented to: Person Cognitive Function: Fair Patient Appearance: Well Groomed Mood: Euthymic Affect: Mood Congruent Patient Behavior: Cooperative Speech Pattern: Appropriate Voice Loudness: Normal Thought Process: Goal Oriented Thought Disorder: Being Controlled Hallucinations: Denies Suicidal Ideation: Denies Homicidal Ideation: Denies Insight/Judgement: Fair Sleep: Difficulty falling asleep Appetite: Fair Muscle strength/Tone: Normal Gait/Station: Normal Additional Comments: Observation. Detox unit care protocol Psychiatric Findings - Problem List ([place] 1, 2,3) (1) Anxiety and depression Current Visit: Yes Status: Acute (2) Cannabis dependence, uncomplicated Current Visit: No Status: Acute (3) Cocaine dependence, uncomplicated Current Visit: No Status: Acute (4) Nicotine dependence Current Visit: No Status: Acute Qualifiers: Substance use status: in withdrawal (5) Opioid dependence Current Visit: No Status: Acute (6) Opioid dependence with withdrawal Current Visit: No Status: Acute (7) Sedative, hypnotic or anxiolytic abuse Current Visit: No Status: Acute (8) Substance induced mood disorder Current Visit: No Status: Acute - Initial Treatment Plan Initial Treatment Plan: Observation. Detox unit care protocol. Benadryl 50mg po prn qhs for insomnia
[2017-03-03] MEDS: cloNIDine HCL 0.1 MG TABLET PO SCH ×2 (09:51→22:11)
[2017-03-03] MEDS: PRENATAL VITAMINS W/ FOLIC ACID TABLET (FP) PO SCH (09:51)
[2017-03-03] MEDS: diazePAM 5 MG TABLET PO PRN ×3 (09:51→19:24)
[2017-03-03] MEDS: CYCLOBENZAPRINE HCL 10 MG TABLET (FP) PO PRN ×2 (09:51→22:11)
[2017-03-03] MEDS: NICOTINE 21 MG/24 HOURS TOPICAL PATCH TD SCH (09:53)
[2017-03-03] MEDS ORDERED: METHADONE HCL 10 MG TABLET (FOR DETOX USE ONLY) PO ONE (10:00)
--- NOTE | 2017-03-03 10:41 | EKG ---
Test Reason : Blood Pressure : / mmHG Vent. Rate : 057 BPM Atrial Rate : 057 BPM P-R Int : 146 ms QRS Dur : 088 ms QT Int : 414 ms P-R-T Axes : 053 071 051 degrees QTc Int : 402 ms SINUS BRADYCARDIA OTHERWISE NORMAL ECG WHEN COMPARED WITH ECG OF 17-JAN-2017 17:14, NO SIGNIFICANT CHANGE WAS FOUND Confirmed by CHIP MARTINES MD ([id number]) on 03/03/2017 10:41:14 AM Referred By: Confirmed By:CHIP MARTINES MD
--- NOTE | 2017-03-03 11:17 | PN ---
BHS COWS - Scale Resting Pulse: 0= [place] 80 or Below Sweatin= Chills/Flushing Restless Observation: 1= Difficult to Sit Still Pupil Size: 0= Normal to Room Light Bone or Joint Aches: 2= Severe Diffuse Aches Runny Nose/ Eye Tearin= Nasal Congestion GI Upset > 30mins: 1= Stomach Cramp Tremor Observation of Outstretched Hands: 2= Slight Tremor Visible Yawning Observation: 1= 1-2x During Session Anxiety or Irritability: 2=Irritable/Anxious Goose Flesh Skin: 3=Piloerection COWS Score: 14 BHS Progress Note (SOAP) Subjective: Body Aches, Sweating, Interrupted sleep, Stomach Cramping. Objective: PT. A & O X 3, OBSERVED AMBULATING ON UNIT. NO ACUTE DISTRESS. 03/03/17 11:16 Vital Signs Temperature 99.3 F 03/03/17 09:08 Pulse Rate 57 L 03/03/17 09:08 Respiratory Rate 16 03/03/17 09:08 Blood Pressure 97/60 03/03/17 09:08 O2 Sat by Pulse Oximetry (%) Laboratory Tests 03/02/17 16:52 Urine Color Ltyellow Urine Appearance Clear Urine pH 6.0 Urine Protein Negative Urine Glucose (UA) Negative Urine Ketones Negative Urine Blood Negative Urine Nitrite Negative Urine Bilirubin Negative Urine Urobilinogen Negative Ur Leukocyte Esterase Negative UA RESULTS NOTED. OTHER ADMISSION LAB VALUES PENDING. Assessment: 03/03/17 11:17 WITHDRAWAL SYMPTOMS. Plan: CONTINUE DETOX. INCREASE PO FLUID INTAKE.
[2017-03-03 14:42] LABS: MCH 29.3 pg (25.7-33.7); MCHC 33.6 g/dl (32.0-35.9); MEAN CELL VOLUME 87.2 fl (80-96); MEAN PLT VOLUME 8.6 fl (7.5-11.1); PLATELET COUNT 205 K/MM3 (134-434); RDW 14.7 % (11.9-15.9); WHITE BLOOD COUNT 5.3 K/mm3 (4.0-10.0)
[2017-03-03 15:12] LABS: ALBUMIN 3.5 g/dl (3.4-5.0); ALK PHOS 65 U/L (45-117); ANION GAP 5 (8-16); BILIRUBIN,TOTAL 0.3 mg/dL (0.2-1.0); CALCIUM 9.2 mg/dL (8.5-10.1); CO2 31 mmol/L (21-32); GLUCOSE,RANDOM 68 mg/dL (74-106); SGOT/AST 14 U/L (15-37); SGPT/ALT 23 U/L (12-78); TOT PROT 6.3 g/dl (6.4-8.2)
[2017-03-03] MEDS: THIAMINE HCL 100 MG TABLET (FP) PO SCH (22:11)
[2017-03-04] MEDS: diazePAM 5 MG TABLET PO PRN ×5 (00:49→22:14)
[2017-03-04] MEDS ORDERED: METHADONE HCL 5 MG TABLET (FOR DETOX USE ONLY) PO ONE (10:00)
[2017-03-04] MEDS: PRENATAL VITAMINS W/ FOLIC ACID TABLET (FP) PO SCH (10:24)
[2017-03-04] MEDS: cloNIDine HCL 0.1 MG TABLET PO SCH ×2 (10:24→22:14)
[2017-03-04] MEDS: NICOTINE 21 MG/24 HOURS TOPICAL PATCH TD SCH (10:25)
--- NOTE | 2017-03-04 11:59 | PN ---
BHS COWS - Scale Resting Pulse: 0= [place] 80 or Below Sweatin= Chills/Flushing Restless Observation: 1= Difficult to Sit Still Pupil Size: 0= Normal to Room Light Bone or Joint Aches: 4=Acute Joint/Muscle Pain Runny Nose/ Eye Tearin= Nasal Congestion GI Upset > 30mins: 1= Stomach Cramp Tremor Observation of Outstretched Hands: 2= Slight Tremor Visible Yawning Observation: 1= 1-2x During Session Anxiety or Irritability: 2=Irritable/Anxious Goose Flesh Skin: 3=Piloerection COWS Score: 16 S Progress Note (SOAP) Subjective: Body aches, Lower Back Ache, Fatigue, Sweating, Tremors, Stomach Cramping. Objective: PT. A & O X 3, OBSERVED AMBULATING ON UNIT. NO ACUTE DISTRESS. 03/04/17 11:56 Vital Signs Temperature 97.7 F 03/04/17 09:45 Pulse Rate 63 03/04/17 09:45 Respiratory Rate 18 03/04/17 09:45 Blood Pressure 106/67 03/04/17 09:45 O2 Sat by Pulse Oximetry (%) Laboratory Tests 03/02/17 03/03/17 03/03/17 16:52 10:45 10:45 WBC 5.3 D RBC 4.61 Hgb 13.5 Hct 40.2 MCV 87.2 MCH 29.3 MCHC 33.6 RDW 14.7 Plt Count 205 MPV 8.6 Sodium 141 Potassium 4.3 Chloride 105 Carbon Dioxide 31 Anion Gap 5 L BUN 9 Creatinine 1.0 Creat Clearance w eGFR > 60 Random Glucose 68 L Calcium 9.2 Total Bilirubin 0.3 D AST 14 L D ALT 23 D Alkaline Phosphatase 65 Total Protein 6.3 L Albumin 3.5 Urine Color Ltyellow Urine Appearance Clear Urine pH 6.0 Ur Specific [place] 1.015 Urine Protein Negative Urine Glucose (UA) Negative Urine Ketones Negative Urine Blood Negative Urine Nitrite Negative Urine Bilirubin Negative Urine Urobilinogen Negative Ur Leukocyte Esterase Negative RPR Titer 03/03/17 10:45 WBC RBC Hgb Hct MCV MCH MCHC RDW Plt Count MPV Sodium Potassium Chloride Carbon Dioxide Anion Gap BUN Creatinine Creat Clearance w eGFR Random Glucose Calcium Total Bilirubin AST ALT Alkaline Phosphatase Total Protein Albumin Urine Color Urine Appearance Urine pH Ur Specific [place] Urine Protein Urine Glucose (UA) Urine Ketones Urine Blood Urine Nitrite Urine Bilirubin Urine Urobilinogen Ur Leukocyte Esterase RPR Titer Nonreactive LABS NOTED. Assessment: 03/04/17 11:58 WITHDRAWAL SYMPTOMS. Plan: CONTINUE DETOX.
[2017-03-04] MEDS: THIAMINE HCL 100 MG TABLET (FP) PO SCH (22:14)
[2017-03-05] MEDS: diazePAM 5 MG TABLET PO PRN ×2 (02:40→10:32)
[2017-03-05] MEDS ORDERED: METHADONE HCL 5 MG TABLET (FOR DETOX USE ONLY) PO ONE (10:00)
[2017-03-05] MEDS: PRENATAL VITAMINS W/ FOLIC ACID TABLET (FP) PO SCH (10:30)
[2017-03-05] MEDS: cloNIDine HCL 0.1 MG TABLET PO SCH ×2 (10:31→22:25)
[2017-03-05] MEDS: NICOTINE 21 MG/24 HOURS TOPICAL PATCH TD SCH (10:31)
--- NOTE | 2017-03-05 11:27 | PN ---
BHS Progress Note (SOAP) Subjective: Tremors, Diarrhea, Tremors, Interrupted sleep. Objective: PT. A & O X 2 (DISORIENTED ABOUT DAY / DATE). PT. OBSERVED AMBULATING ON UNIT. NO ACUTE DISTRESS. 03/05/17 11:25 Vital Signs Temperature 98.9 F 03/05/17 10:31 Pulse Rate 78 03/05/17 10:31 Respiratory Rate 18 03/05/17 10:31 Blood Pressure 107/60 03/05/17 10:31 O2 Sat by Pulse Oximetry (%) Laboratory Tests 03/02/17 03/03/17 03/03/17 16:52 10:45 10:45 WBC 5.3 D RBC 4.61 Hgb 13.5 Hct 40.2 MCV 87.2 MCH 29.3 MCHC 33.6 RDW 14.7 Plt Count 205 MPV 8.6 Sodium 141 Potassium 4.3 Chloride 105 Carbon Dioxide 31 Anion Gap 5 L BUN 9 Creatinine 1.0 Creat Clearance w eGFR > 60 Random Glucose 68 L Calcium 9.2 Total Bilirubin 0.3 D AST 14 L D ALT 23 D Alkaline Phosphatase 65 Total Protein 6.3 L Albumin 3.5 Urine Color Ltyellow Urine Appearance Clear Urine pH 6.0 Ur Specific [place] 1.015 Urine Protein Negative Urine Glucose (UA) Negative Urine Ketones Negative Urine Blood Negative Urine Nitrite Negative Urine Bilirubin Negative Urine Urobilinogen Negative Ur Leukocyte Esterase Negative RPR Titer 03/03/17 10:45 WBC RBC Hgb Hct MCV MCH MCHC RDW Plt Count MPV Sodium Potassium Chloride Carbon Dioxide Anion Gap BUN Creatinine Creat Clearance w eGFR Random Glucose Calcium Total Bilirubin AST ALT Alkaline Phosphatase Total Protein Albumin Urine Color Urine Appearance Urine pH Ur Specific [place] Urine Protein Urine Glucose (UA) Urine Ketones Urine Blood Urine Nitrite Urine Bilirubin Urine Urobilinogen Ur Leukocyte Esterase RPR Titer Nonreactive LABS NOTED. Assessment: 03/05/17 11:26 WITHDRAWAL SYMPTOMS. Plan: CONTINUE DETOX.
[2017-03-05] MEDS: CYCLOBENZAPRINE HCL 10 MG TABLET (FP) PO PRN (22:25)
[2017-03-05] MEDS: THIAMINE HCL 100 MG TABLET (FP) PO SCH (22:25)
[2017-03-05] MEDS: diphenhydrAMINE HCL 50 MG CAPSULE PO PRN (22:33)
[2017-03-06] MEDS ORDERED: METHADONE HCL 10 MG TABLET (FOR DETOX USE ONLY) PO ONE (10:00)
[2017-03-06] MEDS: PRENATAL VITAMINS W/ FOLIC ACID TABLET (FP) PO SCH (10:28)
[2017-03-06] MEDS: cloNIDine HCL 0.1 MG TABLET PO SCH ×2 (10:28→22:42)
[2017-03-06] MEDS: NICOTINE 21 MG/24 HOURS TOPICAL PATCH TD SCH (10:29)
[2017-03-06] MEDS: CYCLOBENZAPRINE HCL 10 MG TABLET (FP) PO PRN (10:30)
--- NOTE | 2017-03-06 13:31 | PN ---
BHS Progress Note (SOAP) Subjective: Interrupted sleep, Sweating, H/A, Diarrhea, Stomach Cramping, Lower Back Ache. Objective: PT. A & O X 3, OBSERVED AMBULATING ON UNIT. NO ACUTE DISTRESS. 03/06/17 13:29 Vital Signs Temperature 97.7 F 03/06/17 13:19 Pulse Rate 74 03/06/17 13:19 Respiratory Rate 18 03/06/17 13:19 Blood Pressure 114/57 03/06/17 13:19 O2 Sat by Pulse Oximetry (%) Laboratory Tests 03/02/17 03/03/17 03/03/17 16:52 10:45 10:45 WBC 5.3 D RBC 4.61 Hgb 13.5 Hct 40.2 MCV 87.2 MCH 29.3 MCHC 33.6 RDW 14.7 Plt Count 205 MPV 8.6 Sodium 141 Potassium 4.3 Chloride 105 Carbon Dioxide 31 Anion Gap 5 L BUN 9 Creatinine 1.0 Creat Clearance w eGFR > 60 Random Glucose 68 L Calcium 9.2 Total Bilirubin 0.3 D AST 14 L D ALT 23 D Alkaline Phosphatase 65 Total Protein 6.3 L Albumin 3.5 Urine Color Ltyellow Urine Appearance Clear Urine pH 6.0 Ur Specific [place] 1.015 Urine Protein Negative Urine Glucose (UA) Negative Urine Ketones Negative Urine Blood Negative Urine Nitrite Negative Urine Bilirubin Negative Urine Urobilinogen Negative Ur Leukocyte Esterase Negative RPR Titer 03/03/17 10:45 WBC RBC Hgb Hct MCV MCH MCHC RDW Plt Count MPV Sodium Potassium Chloride Carbon Dioxide Anion Gap BUN Creatinine Creat Clearance w eGFR Random Glucose Calcium Total Bilirubin AST ALT Alkaline Phosphatase Total Protein Albumin Urine Color Urine Appearance Urine pH Ur Specific [place] Urine Protein Urine Glucose (UA) Urine Ketones Urine Blood Urine Nitrite Urine Bilirubin Urine Urobilinogen Ur Leukocyte Esterase RPR Titer Nonreactive LABS NOTED. Assessment: 03/06/17 13:30 WITHDRAWAL SYMPTOMS. Plan: CONTINUE DETOX.
[2017-03-06] MEDS: THIAMINE HCL 100 MG TABLET (FP) PO SCH (22:42)
[2017-03-07] MEDS: CYCLOBENZAPRINE HCL 10 MG TABLET (FP) PO PRN (05:50)
[2017-03-07] MEDS ORDERED: METHADONE HCL 5 MG TABLET (FOR DETOX USE ONLY) PO ONE (06:00)
[2017-03-07 06:28] VITALS: BP 102/57; PULSE 58; TEMP 96.2
--- NOTE | 2017-03-07 14:28 | DS ---
[facility] Detox Discharge Summary Admission Date: 03/02/17 Discharge Date: 03/07/17 - History Present History: Cannabis Dependence, Opioid Dependence Pertinent Past History: Denies - Physical Exam Results Vital Signs: Vital Signs Temperature 96.2 F L 03/07/17 06:28 Pulse Rate 58 L 03/07/17 06:28 Respiratory Rate 18 03/07/17 06:28 Blood Pressure 102/57 03/07/17 06:28 O2 Sat by Pulse Oximetry (%) Pertinent Admission Physical Exam Findings: Withdrawal symptoms Laboratory Tests 03/02/17 03/03/17 03/03/17 16:52 10:45 10:45 WBC 5.3 D RBC 4.61 Hgb 13.5 Hct 40.2 MCV 87.2 MCH 29.3 MCHC 33.6 RDW 14.7 Plt Count 205 MPV 8.6 Sodium 141 Potassium 4.3 Chloride 105 Carbon Dioxide 31 Anion Gap 5 L BUN 9 Creatinine 1.0 Creat Clearance w eGFR > 60 Random Glucose 68 L Calcium 9.2 Total Bilirubin 0.3 D AST 14 L D ALT 23 D Alkaline Phosphatase 65 Total Protein 6.3 L Albumin 3.5 Urine Color Ltyellow Urine Appearance Clear Urine pH 6.0 Ur Specific [place] 1.015 Urine Protein Negative Urine Glucose (UA) Negative Urine Ketones Negative Urine Blood Negative Urine Nitrite Negative Urine Bilirubin Negative Urine Urobilinogen Negative Ur Leukocyte Esterase Negative RPR Titer 03/03/17 10:45 WBC RBC Hgb Hct MCV MCH MCHC RDW Plt Count MPV Sodium Potassium Chloride Carbon Dioxide Anion Gap BUN Creatinine Creat Clearance w eGFR Random Glucose Calcium Total Bilirubin AST ALT Alkaline Phosphatase Total Protein Albumin Urine Color Urine Appearance Urine pH Ur Specific [place] Urine Protein Urine Glucose (UA) Urine Ketones Urine Blood Urine Nitrite Urine Bilirubin Urine Urobilinogen Ur Leukocyte Esterase RPR Titer Nonreactive Labs noted - Treatment Hospital Course: Detox Protocol Followed, Detoxed Safely, Responded well, Discharged Condition Good - Medication Discharge Medications: Ambulatory Orders NK [No Known Home Medication] 03/02/17 - Diagnosis (1) Anxiety and depression Status: Chronic (2) Cannabis dependence, uncomplicated Status: Chronic (3) Insomnia Status: Chronic (4) Nicotine dependence Status: Chronic Qualifiers: Substance use status: in withdrawal (5) Opioid dependence with withdrawal Status: Acute - AMA Did Patient Leave Against Medical Advice: No
== END 2017-03-07 09:21 | disposition home or self-care (01) | DRG 773 ==
LOC: YASAS 09:19 → Y3N 14:19
PROVIDERS: ADMIT Internal Medicine; ATTEND Internal Medicine
PROC: HZ2ZZZZ Detoxification Services for Substance Abuse Treatment (ICD-10-PCS; principal; 2017-03-07)
DX: F11.23 Opioid dependence with withdrawal (principal); F14.20 Cocaine dependence, uncomplicated; F12.20 Cannabis dependence, uncomplicated; F17.210 Nicotine dependence, cigarettes, uncomplicated; F13.10 Sedative, hypnotic or anxiolytic abuse, uncomplicated; F19.24 Other psychoactive substance dependence with psychoactive substance-induced mood disorder; F41.8 Other specified anxiety disorders
CPT/HCPCS: 36415; 80053; 81003; 85027; 86593; 93005; 93010

== ENCOUNTER 2017-09-08 10:34 | Inpatient (IN) | payer OTHER ==
[2017-09-08 12:59] VITALS: BMI 24.9
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
[2017-09-08] MEDS ORDERED: MAG HYDROX/AL HYDROX/SIMETH 30 ML UNIT-DOSE CUP PO PRN (15:26)
[2017-09-08] MEDS ORDERED: LOPERAMIDE HCL 2 MG CAPSULE PO PRN (15:26)
[2017-09-08] MEDS ORDERED: MAGNESIUM CITRATE 300 ML BOTTLE PO PRN (15:26)
[2017-09-08] MEDS ORDERED: guaiFENesin/D-METHORPHAN HB 10 ML UNIT-DOSE CUPS PO PRN (15:26)
[2017-09-08] MEDS ORDERED: P-EPHED 60MG/TRIPROLIDI 2.5MG TABLET PO PRN (15:26)
[2017-09-08] MEDS ORDERED: MAGNESIUM HYDROX 2400MG/30ML ORAL SUSPENSION 30 ML CUP PO PRN (15:26)
[2017-09-08] MEDS ORDERED: NICOTINE POLACRILEX 2 MG GUM BC PRN (15:26)
[2017-09-08] MEDS ORDERED: IBUPROFEN 400 MG TABLET (FP) PO PRN (15:26)
[2017-09-08] MEDS ORDERED: ACETAMINOPHEN 325 MG TABLET (FP) PO PRN (15:26)
[2017-09-08] MEDS ORDERED: MENTHOL/PHENOL 1 EACH UD MM PRN (15:26)
[2017-09-08] MEDS ORDERED: diazePAM 5 MG TABLET PO ONE (17:00)
[2017-09-08] MEDS ORDERED: METHADONE HCL 10 MG TABLET (FOR DETOX USE ONLY) PO ONE ×2 (17:00→23:00)
[2017-09-08] MEDS: NICOTINE 14 MG/24 HOURS TOPICAL PATCH TD SCH (17:56)
[2017-09-08] MEDS: THIAMINE HCL 100 MG TABLET (FP) PO SCH (22:33)
[2017-09-08] MEDS: diazePAM 5 MG TABLET PO SCH (22:34)
[2017-09-08] MEDS: hydrOXYzine PAMOATE 50 MG CAPSULE (FP) PO PRN (23:41)
[2017-09-09] MEDS: diazePAM 5 MG TABLET PO SCH ×3 (05:53→22:33)
--- NOTE | 2017-09-09 08:22 | CONSULT ---
[facility] Psychiatric Consult - Data Date of interview: 09/09/17 Admission source: [facility] Identifying data: This is 32 years old male with no psychiatgric hospitalization history intoxiocated with: Opioids, Xanax, Cannabis and Nicotine Substance Abuse History: - Smoking Cessation. Smoking history: Current every day smoker. Have you smoked in the past 12 months: Yes. Aproximately how many cigarettes per day: 10. Cigars Per Day: 0. Hx Chewing Tobacco Use: No. Initiated information on smoking cessation: Yes. 'Breaking Loose' booklet given : 09/08/17. - Substance & Tx. History. Hx Alcohol Use: No (DENIES PROBLEM WITH ALCOHOL). Hx Substance Use: Yes (HEROIN/XANAX/MARIJUANA). Substance Use Type: Heroin, Marijuana, Tranquilizers. Hx Substance Use Treatment: Yes (LAST TX AT [facility]). - Substances Abused. Heroin. Route: Injection. Frequency: Daily. Amount used: 5 bags. Age of first use: 22. Date of Last Use: . Alprazolam (Xanax). Route: Oral. Frequency: Daily. Amount used: 2 sticks. Age of first use: 22. Date of Last Use: 09/01/17. Marijuana/ Hashish. Route: Smoking. Frequency: Daily. Amount used: 3 blunts. Age of first use: 17. Date of Last Use: 09/07/17 Medical History: Denies significant medical problems Psychiatric History: Reports hisatory bof depression, no medsications taking prior to admission., denies suidial history Physical/Sexual Abuse/Trauma History: Denies Additional Comment: Observation. Detox Unit Care Protocol Mental Status Exam - Mental Status Exam Alert and Oriented to: Person Cognitive Function: Fair Patient Appearance: Unkempt Mood: Sad Affect: Mood Congruent Patient Behavior: Cooperative Speech Pattern: Appropriate Voice Loudness: Normal, Mildly Loud Thought Disorder: Being Controlled Hallucinations: Denies Suicidal Ideation: Denies Homicidal Ideation: Denies Insight/Judgement: Fair Sleep: Difficulty falling asleep Appetite: Fair Muscle strength/Tone: Normal Gait/Station: Normal Additional Comments: Observation. DFetox Unit Care Protocol Psychiatric Findings - Problem List ([place] 1, 2,3) (1) Cannabis dependence, uncomplicated Current Visit: Yes Status: Acute (2) Nicotine dependence Current Visit: Yes Status: Acute Qualifiers: Nicotine product type: cigarettes Substance use status: in withdrawal Qualified Code(s): F17.213 - Nicotine dependence, cigarettes, with withdrawal (3) Opioid dependence with withdrawal Current Visit: Yes Status: Acute (4) Sedative, hypnotic or anxiolytic abuse Current Visit: Yes Status: Acute (5) Anxiety and depression Current Visit: Yes Status: Chronic (6) Cocaine dependence, uncomplicated Current Visit: No Status: Acute (7) Substance induced mood disorder Current Visit: No Status: Acute - Initial Treatment Plan Initial Treatment Plan: Observation. DFetox Unit Care Protocol
[2017-09-09] MEDS ORDERED: METHADONE HCL 10 MG TABLET (FOR DETOX USE ONLY) PO SCH (10:00)
[2017-09-09] MEDS: diazePAM 5 MG TABLET PO PRN ×2 (10:28→17:52)
[2017-09-09] MEDS: PRENATAL VITAMINS W/ FOLIC ACID TABLET (FP) PO SCH (10:28)
[2017-09-09] MEDS: NICOTINE 14 MG/24 HOURS TOPICAL PATCH TD SCH (10:29)
[2017-09-09 10:43] LABS: HEMATOCRIT 44.9 % (35.4-49); HEMOGLOBIN 14.7 GM/dL (11.7-16.9); MCH 28.2 pg (25.7-33.7); MCHC 32.6 g/dl (32.0-35.9); MEAN CELL VOLUME 86.4 fl (80-96); MEAN PLT VOLUME 9.4 fl (7.5-11.1); PLATELET COUNT 205 K/MM3 (134-434); RDW 14.5 % (11.9-15.9); WHITE BLOOD COUNT 7.4 K/mm3 (4.0-10.0)
[2017-09-09 10:55] LABS: CHLORIDE 99 mmol/L (98-107); POTASSIUM 4.2 mmol/L (3.5-5.1); SODIUM 139 mmol/L (136-145)
[2017-09-09 11:10] LABS: ALBUMIN 4.3 g/dl (3.4-5.0); ALK PHOS 69 U/L (45-117); ANION GAP 10 (8-16); BILIRUBIN,TOTAL 0.5 mg/dL (0.2-1.0); BLOOD UREA NITROGEN 13 mg/dL (7-18); CALCIUM 9.3 mg/dL (8.5-10.1); CO2 30 mmol/L (21-32); CREATININE 1.2 mg/dL (0.7-1.3); GLUCOSE,RANDOM 79 mg/dL (74-106); SGOT/AST 19 U/L (15-37); SGPT/ALT 30 U/L (12-78); TOT PROT 7.9 g/dl (6.4-8.2)
--- NOTE | 2017-09-09 12:36 | EKG ---
Test Reason : Blood Pressure : / mmHG Vent. Rate : 056 BPM Atrial Rate : 056 BPM P-R Int : 160 ms QRS Dur : 086 ms QT Int : 406 ms P-R-T Axes : 052 067 053 degrees QTc Int : 391 ms SINUS BRADYCARDIA OTHERWISE NORMAL ECG WHEN COMPARED WITH ECG OF 02-MAR-2017 16:01, NO SIGNIFICANT CHANGE WAS FOUND Confirmed by GIN QUINONES MD ([id number]) on 09/09/2017 12:36:41 PM Referred By: Confirmed By:GIN QUINONES MD
[2017-09-09 14:14] LABS: URINE APPEARANCE CLEAR; URINE BILIRUBIN NEGATIVE (NEGATIVE); URINE BLOOD NEGATIVE (NEGATIVE); URINE COLOR LTYELLOW; URINE GLUCOSE (UA) NEGATIVE (NEGATIVE); URINE KETONE NEGATIVE (NEGATIVE); URINE LEUK ESTERASE NEGATIVE (NEGATIVE); URINE NITRITE NEGATIVE (NEGATIVE); URINE PROTEIN NEGATIVE (NEGATIVE); URINE UROBILINOGEN NEGATIVE mg/dL (0.2-1.0)
--- NOTE | 2017-09-09 14:29 | PN ---
S CIWA - CIWA Score Nausea/Vomitin Muscle Tremors: 4-Moderate,w/Arms Extend Anxiety: 4-Mod. Anxious/Guarded Agitation: 0-Normal Activity Paroxysmal Sweats: 3 Orientation: 0-Oriented Tacttile Disturbances: 1-Very Mild Itch/Numbness Auditory Disturbances: 0-None Visual Disturbances: 1-Very Mild Sensitivity Headache: 1-Very Mild CIWA-Ar Total Score: 16 BHS COWS - Scale Resting Pulse: 0= [place] 80 or Below Sweatin= Chills/Flushing Restless Observation: 1= Difficult to Sit Still Pupil Size: 0= Normal to Room Light Bone or Joint Aches: 1= Mild Discomfort Runny Nose/ Eye Tearin= None GI Upset > 30mins: 2= Nausea/Diarrhea Tremor Observation of Outstretched Hands: 2= Slight Tremor Visible Yawning Observation: 1= 1-2x During Session Anxiety or Irritability: 1=Feels Anxious/Irritable Goose Flesh Skin: 3=Piloerection COWS Score: 12 S Progress Note (SOAP) Subjective: Interrupted sleep, anxious, body aches, chills Objective: 09/09/17 14:28 Last Vital Signs Temp Pulse Resp BP Pulse Ox 99.1 F 63 20 114/68 09/09/17 09:28 09/09/17 09:28 09/09/17 09:28 09/09/17 09:28 Laboratory Last Values WBC 7.4 K/mm3 (4.0-10.0) D 09/09/17 06:00 RBC 5.20 M/mm3 (4.00-5.60) 09/09/17 06:00 Hgb 14.7 GM/dL (11.7-16.9) 09/09/17 06:00 Hct 44.9 % (35.4-49) 09/09/17 06:00 MCV 86.4 fl (80-96) 09/09/17 06:00 MCH 28.2 pg (25.7-33.7) 09/09/17 06:00 MCHC 32.6 g/dl (32.0-35.9) 09/09/17 06:00 RDW 14.5 % (11.9-15.9) 09/09/17 06:00 Plt Count 205 K/MM3 (134-434) 09/09/17 06:00 MPV 9.4 fl (7.5-11.1) 09/09/17 06:00 Sodium 139 mmol/L (136-145) 09/09/17 06:00 Potassium 4.2 mmol/L (3.5-5.1) 09/09/17 06:00 Chloride 99 mmol/L (98-107) 09/09/17 06:00 Carbon Dioxide 30 mmol/L (21-32) 09/09/17 06:00 Anion Gap 10 (8-16) 09/09/17 06:00 BUN 13 mg/dL (7-18) D 09/09/17 06:00 Creatinine 1.2 mg/dL (0.7-1.3) 09/09/17 06:00 Creat Clearance w eGFR > 60 (>60) 09/09/17 06:00 Random Glucose 79 mg/dL (74-106) 09/09/17 06:00 Calcium 9.3 mg/dL (8.5-10.1) 09/09/17 06:00 Total Bilirubin 0.5 mg/dL (0.2-1.0) D 09/09/17 06:00 AST 19 U/L (15-37) D 09/09/17 06:00 ALT 30 U/L (12-78) D 09/09/17 06:00 Alkaline Phosphatase 69 U/L (45-117) 09/09/17 06:00 Total Protein 7.9 g/dl (6.4-8.2) D 09/09/17 06:00 Albumin 4.3 g/dl (3.4-5.0) D 09/09/17 06:00 Urine Color Ltyellow 09/09/17 09:10 Urine Appearance Clear 09/09/17 09:10 Urine pH 7.0 (5.0-8.0) 09/09/17 09:10 Ur Specific [place] 1.010 (1.001-1.035) 09/09/17 09:10 Urine Protein Negative (NEGATIVE) 09/09/17 09:10 Urine Glucose (UA) Negative (NEGATIVE) 09/09/17 09:10 Urine Ketones Negative (NEGATIVE) 09/09/17 09:10 Urine Blood Negative (NEGATIVE) 09/09/17 09:10 Urine Nitrite Negative (NEGATIVE) 01/18/18 09:10 Urine Bilirubin Negative (NEGATIVE) 09/09/17 09:10 Urine Urobilinogen Negative mg/dL (0.2-1.0) 09/09/17 09:10 Ur Leukocyte Esterase Negative (NEGATIVE) 09/09/17 09:10 labs noted Assessment: 09/09/17 14:28 Aox3 Ambulating No distress withdrawal symptoms Plan: continue Detox increase fluids
[2017-09-09] MEDS: THIAMINE HCL 100 MG TABLET (FP) PO SCH (22:33)
[2017-09-09] MEDS: hydrOXYzine PAMOATE 50 MG CAPSULE (FP) PO PRN (22:34)
[2017-09-10] MEDS: diazePAM 5 MG TABLET PO SCH ×2 (10:12→22:36)
[2017-09-10] MEDS: PRENATAL VITAMINS W/ FOLIC ACID TABLET (FP) PO SCH (10:12)
[2017-09-10] MEDS: METHADONE HCL 5 MG TABLET (FOR DETOX USE ONLY) PO SCH (10:12)
[2017-09-10] MEDS: NICOTINE 14 MG/24 HOURS TOPICAL PATCH TD SCH (10:12)
--- NOTE | 2017-09-10 10:30 | PN ---
[facility] CIWA - CIWA Score Nausea/Vomitin-No Nausea/No Vomiting Muscle Tremors: 4-Moderate,w/Arms Extend Anxiety: 3 Agitation: 3 Paroxysmal Sweats: 3 Orientation: 0-Oriented Tacttile Disturbances: 0-None Auditory Disturbances: 0-None Visual Disturbances: 0-None Headache: 0-None Present CIWA-Ar Total Score: 13 BHS COWS - Scale Resting Pulse: 0= [place] 80 or Below Sweatin=Flushed/Facial Moisture Restless Observation: 0= Sits Still Pupil Size: 0= Normal to Room Light Bone or Joint Aches: 2= Severe Diffuse Aches Runny Nose/ Eye Tearin= Runny Nose/Eyes GI Upset > 30mins: 0= None Tremor Observation of Outstretched Hands: 2= Slight Tremor Visible Yawning Observation: 2= >3x During Session Anxiety or Irritability: 2=Irritable/Anxious Goose Flesh Skin: 0=Smooth Skin COWS Score: 12 S Progress Note (SOAP) Subjective: agitation anxiety sweats chills body aches Objective: 09/10/17 10:30 Vital Signs Temperature 97.9 F 09/10/17 07:35 Pulse Rate 58 L 09/10/17 07:35 Respiratory Rate 16 09/10/17 07:35 Blood Pressure 94/50 09/10/17 07:35 O2 Sat by Pulse Oximetry (%) Laboratory Tests 09/08/17 09/09/17 09/09/17 06:00 06:00 06:00 WBC RBC Hgb Hct MCV MCH MCHC RDW Plt Count MPV Sodium 139 Potassium 4.2 Chloride 99 Carbon Dioxide 30 Anion Gap 10 BUN 13 D Creatinine 1.2 Creat Clearance w eGFR > 60 Random Glucose 79 Calcium 9.3 Total Bilirubin 0.5 D AST 19 D ALT 30 D Alkaline Phosphatase 69 Total Protein 7.9 D Albumin 4.3 D Urine Color Urine Appearance Urine pH Ur Specific [place] Urine Protein Urine Glucose (UA) Urine Ketones Urine Blood Urine Nitrite Urine Bilirubin Urine Urobilinogen Ur Leukocyte Esterase RPR Titer Nonreactive HIV 1&2 Antibody Screen Negative HIV P24 Antigen Negative 09/09/17 09/09/17 06:00 09:10 WBC 7.4 D RBC 5.20 Hgb 14.7 Hct 44.9 MCV 86.4 MCH 28.2 MCHC 32.6 RDW 14.5 Plt Count 205 MPV 9.4 Sodium Potassium Chloride Carbon Dioxide Anion Gap BUN Creatinine Creat Clearance w eGFR Random Glucose Calcium Total Bilirubin AST ALT Alkaline Phosphatase Total Protein Albumin Urine Color Ltyellow Urine Appearance Clear Urine pH 7.0 Ur Specific [place] 1.010 Urine Protein Negative Urine Glucose (UA) Negative Urine Ketones Negative Urine Blood Negative Urine Nitrite Negative Urine Bilirubin Negative Urine Urobilinogen Negative Ur Leukocyte Esterase Negative RPR Titer HIV 1&2 Antibody Screen HIV P24 Antigen aaox3 ambulating no acute distress Assessment: 09/10/17 10:30 withdrawal sx Plan: continue detox increase fluids
[2017-09-10] MEDS: diazePAM 5 MG TABLET PO PRN ×3 (13:27→23:44)
[2017-09-10] MEDS: THIAMINE HCL 100 MG TABLET (FP) PO SCH (22:36)
[2017-09-11] MEDS: diazePAM 5 MG TABLET PO PRN (03:55)
[2017-09-11] MEDS: diazePAM 5 MG TABLET PO SCH ×2 (10:17→22:17)
[2017-09-11] MEDS: PRENATAL VITAMINS W/ FOLIC ACID TABLET (FP) PO SCH (10:17)
[2017-09-11] MEDS: METHADONE HCL 5 MG TABLET (FOR DETOX USE ONLY) PO SCH (10:17)
[2017-09-11] MEDS: NICOTINE 14 MG/24 HOURS TOPICAL PATCH TD SCH (10:18)
--- NOTE | 2017-09-11 13:45 | PN ---
[facility] Progress Note (SOAP) Subjective: Interrupted sleep, shakes, chills, body aches Objective: 09/11/17 13:44 Last Vital Signs Temp Pulse Resp BP Pulse Ox 98.4 F 64 16 118/73 09/11/17 10:28 09/11/17 10:28 09/11/17 10:28 09/11/17 10:28 Laboratory Last Values WBC 7.4 K/mm3 (4.0-10.0) D 09/09/17 06:00 RBC 5.20 M/mm3 (4.00-5.60) 09/09/17 06:00 Hgb 14.7 GM/dL (11.7-16.9) 09/09/17 06:00 Hct 44.9 % (35.4-49) 09/09/17 06:00 MCV 86.4 fl (80-96) 09/09/17 06:00 MCH 28.2 pg (25.7-33.7) 09/09/17 06:00 MCHC 32.6 g/dl (32.0-35.9) 09/09/17 06:00 RDW 14.5 % (11.9-15.9) 09/09/17 06:00 Plt Count 205 K/MM3 (134-434) 09/09/17 06:00 MPV 9.4 fl (7.5-11.1) 09/09/17 06:00 Sodium 139 mmol/L (136-145) 09/09/17 06:00 Potassium 4.2 mmol/L (3.5-5.1) 09/09/17 06:00 Chloride 99 mmol/L (98-107) 09/09/17 06:00 Carbon Dioxide 30 mmol/L (21-32) 09/09/17 06:00 Anion Gap 10 (8-16) 09/09/17 06:00 BUN 13 mg/dL (7-18) D 09/09/17 06:00 Creatinine 1.2 mg/dL (0.7-1.3) 09/09/17 06:00 Creat Clearance w eGFR > 60 (>60) 09/09/17 06:00 Random Glucose 79 mg/dL (74-106) 09/09/17 06:00 Calcium 9.3 mg/dL (8.5-10.1) 09/09/17 06:00 Total Bilirubin 0.5 mg/dL (0.2-1.0) D 09/09/17 06:00 AST 19 U/L (15-37) D 09/09/17 06:00 ALT 30 U/L (12-78) D 09/09/17 06:00 Alkaline Phosphatase 69 U/L (45-117) 09/09/17 06:00 Total Protein 7.9 g/dl (6.4-8.2) D 09/09/17 06:00 Albumin 4.3 g/dl (3.4-5.0) D 09/09/17 06:00 Urine Color Ltyellow 09/09/17 09:10 Urine Appearance Clear 09/09/17 09:10 Urine pH 7.0 (5.0-8.0) 09/09/17 09:10 Ur Specific [place] 1.010 (1.001-1.035) 09/09/17 09:10 Urine Protein Negative (NEGATIVE) 09/09/17 09:10 Urine Glucose (UA) Negative (NEGATIVE) 09/09/17 09:10 Urine Ketones Negative (NEGATIVE) 09/09/17 09:10 Urine Blood Negative (NEGATIVE) 09/09/17 09:10 Urine Nitrite Negative (NEGATIVE) 09/09/17 09:10 Urine Bilirubin Negative (NEGATIVE) 09/09/17 09:10 Urine Urobilinogen Negative mg/dL (0.2-1.0) 09/09/17 09:10 Ur Leukocyte Esterase Negative (NEGATIVE) 09/09/17 09:10 RPR Titer Nonreactive (NONREACTIVE) 09/09/17 06:00 HIV 1&2 Antibody Screen Negative 09/08/17 06:00 HIV P24 Antigen Negative 09/08/17 06:00 Labs noted Assessment: 09/11/17 13:44 AOx3 Ambulating without impairment No distress Plan: Continue detox
[2017-09-11] MEDS: THIAMINE HCL 100 MG TABLET (FP) PO SCH (22:16)
[2017-09-12] MEDS ORDERED: METHADONE HCL 10 MG TABLET (FOR DETOX USE ONLY) PO SCH (10:00)
[2017-09-12] MEDS ORDERED: diazePAM 5 MG TABLET PO SCH (10:00)
[2017-09-12] MEDS: PRENATAL VITAMINS W/ FOLIC ACID TABLET (FP) PO SCH (10:14)
[2017-09-12] MEDS: NICOTINE 14 MG/24 HOURS TOPICAL PATCH TD SCH (10:15)
--- NOTE | 2017-09-12 12:39 | PN ---
S Progress Note (SOAP) Subjective: mild tremor, sweat, mild joints ache Objective: 09/12/17 12:38 Vital Signs Temperature 99.7 F H 09/12/17 10:25 Pulse Rate 67 09/12/17 10:25 Respiratory Rate 18 09/12/17 10:25 Blood Pressure 113/72 09/12/17 10:25 O2 Sat by Pulse Oximetry (%) Laboratory Last Values WBC 7.4 K/mm3 (4.0-10.0) D 09/09/17 06:00 RBC 5.20 M/mm3 (4.00-5.60) 09/09/17 06:00 Hgb 14.7 GM/dL (11.7-16.9) 09/09/17 06:00 Hct 44.9 % (35.4-49) 09/09/17 06:00 MCV 86.4 fl (80-96) 09/09/17 06:00 MCH 28.2 pg (25.7-33.7) 09/09/17 06:00 MCHC 32.6 g/dl (32.0-35.9) 09/09/17 06:00 RDW 14.5 % (11.9-15.9) 09/09/17 06:00 Plt Count 205 K/MM3 (134-434) 09/09/17 06:00 MPV 9.4 fl (7.5-11.1) 09/09/17 06:00 Sodium 139 mmol/L (136-145) 09/09/17 06:00 Potassium 4.2 mmol/L (3.5-5.1) 09/09/17 06:00 Chloride 99 mmol/L (98-107) 09/09/17 06:00 Carbon Dioxide 30 mmol/L (21-32) 09/09/17 06:00 Anion Gap 10 (8-16) 09/09/17 06:00 BUN 13 mg/dL (7-18) D 09/09/17 06:00 Creatinine 1.2 mg/dL (0.7-1.3) 09/09/17 06:00 Creat Clearance w eGFR > 60 (>60) 09/09/17 06:00 Random Glucose 79 mg/dL (74-106) 09/09/17 06:00 Calcium 9.3 mg/dL (8.5-10.1) 09/09/17 06:00 Total Bilirubin 0.5 mg/dL (0.2-1.0) D 09/09/17 06:00 AST 19 U/L (15-37) D 09/09/17 06:00 ALT 30 U/L (12-78) D 09/09/17 06:00 Alkaline Phosphatase 69 U/L (45-117) 09/09/17 06:00 Total Protein 7.9 g/dl (6.4-8.2) D 09/09/17 06:00 Albumin 4.3 g/dl (3.4-5.0) D 09/09/17 06:00 Urine Color Ltyellow 09/09/17 09:10 Urine Appearance Clear 09/09/17 09:10 Urine pH 7.0 (5.0-8.0) 09/09/17 09:10 Ur Specific [place] 1.010 (1.001-1.035) 09/09/17 09:10 Urine Protein Negative (NEGATIVE) 09/09/17 09:10 Urine Glucose (UA) Negative (NEGATIVE) 09/09/17 09:10 Urine Ketones Negative (NEGATIVE) 09/09/17 09:10 Urine Blood Negative (NEGATIVE) 09/09/17 09:10 Urine Nitrite Negative (NEGATIVE) 09/09/17 09:10 Urine Bilirubin Negative (NEGATIVE) 09/09/17 09:10 Urine Urobilinogen Negative mg/dL (0.2-1.0) 09/09/17 09:10 Ur Leukocyte Esterase Negative (NEGATIVE) 09/09/17 09:10 RPR Titer Nonreactive (NONREACTIVE) 09/09/17 06:00 HIV 1&2 Antibody Screen Negative 09/08/17 06:00 HIV P24 Antigen Negative 09/08/17 06:00 lab noted Assessment: 09/12/17 12:39 withdrawal sx Plan: continue detox
[2017-09-12] MEDS: THIAMINE HCL 100 MG TABLET (FP) PO SCH (22:40)
[2017-09-13] MEDS: hydrOXYzine PAMOATE 50 MG CAPSULE (FP) PO PRN (00:56)
[2017-09-13] MEDS ORDERED: METHADONE HCL 5 MG TABLET (FOR DETOX USE ONLY) PO SCH (06:00)
[2017-09-13 09:24] VITALS: BP 121/67; PULSE 57; TEMP 98.1
--- NOTE | 2017-09-13 10:56 | DS ---
[facility] Detox Discharge Summary Admission Date: 09/08/17 Discharge Date: 09/13/17 - History Additional Comments: Pt was offered a bed on Rehab floor but refused it, stating that he will do O/P rehab Pertinent Past History: denies any medical hx - Physical Exam Results Vital Signs: Vital Signs Temperature 98.1 F 09/13/17 09:24 Pulse Rate 57 L 09/13/17 09:24 Respiratory Rate 20 09/13/17 09:24 Blood Pressure 121/67 09/13/17 09:24 O2 Sat by Pulse Oximetry (%) Pertinent Admission Physical Exam Findings: withdrawal sx Vital Signs Temperature 98.1 F 09/13/17 09:24 Pulse Rate 57 L 09/13/17 09:24 Respiratory Rate 20 09/13/17 09:24 Blood Pressure 121/67 09/13/17 09:24 O2 Sat by Pulse Oximetry (%) Laboratory Last Values WBC 7.4 K/mm3 (4.0-10.0) D 09/09/17 06:00 RBC 5.20 M/mm3 (4.00-5.60) 09/09/17 06:00 Hgb 14.7 GM/dL (11.7-16.9) 09/09/17 06:00 Hct 44.9 % (35.4-49) 09/09/17 06:00 MCV 86.4 fl (80-96) 09/09/17 06:00 MCH 28.2 pg (25.7-33.7) 09/09/17 06:00 MCHC 32.6 g/dl (32.0-35.9) 09/09/17 06:00 RDW 14.5 % (11.9-15.9) 09/09/17 06:00 Plt Count 205 K/MM3 (134-434) 09/09/17 06:00 MPV 9.4 fl (7.5-11.1) 09/09/17 06:00 Sodium 139 mmol/L (136-145) 09/09/17 06:00 Potassium 4.2 mmol/L (3.5-5.1) 09/09/17 06:00 Chloride 99 mmol/L (98-107) 09/09/17 06:00 Carbon Dioxide 30 mmol/L (21-32) 09/09/17 06:00 Anion Gap 10 (8-16) 09/09/17 06:00 BUN 13 mg/dL (7-18) D 09/09/17 06:00 Creatinine 1.2 mg/dL (0.7-1.3) 09/09/17 06:00 Creat Clearance w eGFR > 60 (>60) 09/09/17 06:00 Random Glucose 79 mg/dL (74-106) 09/09/17 06:00 Calcium 9.3 mg/dL (8.5-10.1) 09/09/17 06:00 Total Bilirubin 0.5 mg/dL (0.2-1.0) D 09/09/17 06:00 AST 19 U/L (15-37) D 09/09/17 06:00 ALT 30 U/L (12-78) D 09/09/17 06:00 Alkaline Phosphatase 69 U/L (45-117) 09/09/17 06:00 Total Protein 7.9 g/dl (6.4-8.2) D 09/09/17 06:00 Albumin 4.3 g/dl (3.4-5.0) D 09/09/17 06:00 Urine Color Ltyellow 09/09/17 09:10 Urine Appearance Clear 09/09/17 09:10 Urine pH 7.0 (5.0-8.0) 09/09/17 09:10 Ur Specific [place] 1.010 (1.001-1.035) 09/09/17 09:10 Urine Protein Negative (NEGATIVE) 09/09/17 09:10 Urine Glucose (UA) Negative (NEGATIVE) 09/09/17 09:10 Urine Ketones Negative (NEGATIVE) 09/09/17 09:10 Urine Blood Negative (NEGATIVE) 09/09/17 09:10 Urine Nitrite Negative (NEGATIVE) 09/09/17 09:10 Urine Bilirubin Negative (NEGATIVE) 09/09/17 09:10 Urine Urobilinogen Negative mg/dL (0.2-1.0) 09/09/17 09:10 Ur Leukocyte Esterase Negative (NEGATIVE) 09/09/17 09:10 RPR Titer Nonreactive (NONREACTIVE) 09/09/17 06:00 HIV 1&2 Antibody Screen Negative 09/08/17 06:00 HIV P24 Antigen Negative 09/08/17 06:00 labs noted - Treatment Hospital Course: Detox Protocol Followed, Detoxed Safely, Responded well, Discharged Condition Good Patient has Accepted a Rehab Referral to: O/P [facility] - Medication Discharge Medications: Ambulatory Orders NK [No Known Home Medication] 03/02/17 - Diagnosis (1) Opioid dependence with withdrawal Current Visit: Yes Status: Chronic (2) Sedative, hypnotic or anxiolytic abuse Current Visit: Yes Status: Chronic (3) Nicotine dependence Current Visit: Yes Status: Chronic Qualifiers: Nicotine product type: cigarettes Substance use status: uncomplicated Qualified Code(s): F17.210 - Nicotine dependence, cigarettes, uncomplicated (4) Cocaine dependence, uncomplicated Current Visit: No Status: Acute (5) Cannabis dependence, uncomplicated Current Visit: Yes Status: Chronic - AMA Did Patient Leave Against Medical Advice: No
== END 2017-09-13 10:23 | disposition home or self-care (01) | DRG 773 ==
LOC: YASAS 10:34 → Y6N 16:00
PROVIDERS: ADMIT Internal Medicine; ATTEND Internal Medicine
PROC: HZ2ZZZZ Detoxification Services for Substance Abuse Treatment (ICD-10-PCS; principal; 2017-09-08)
DX: F11.23 Opioid dependence with withdrawal (principal); F13.10 Sedative, hypnotic or anxiolytic abuse, uncomplicated; F12.20 Cannabis dependence, uncomplicated; F17.210 Nicotine dependence, cigarettes, uncomplicated; F19.24 Other psychoactive substance dependence with psychoactive substance-induced mood disorder; F41.8 Other specified anxiety disorders; G47.00 Insomnia, unspecified; R00.1 Bradycardia, unspecified
CPT/HCPCS: 36415; 80053; 81003; 85027; 86593; 87389; 93005; 93010

== ENCOUNTER 2018-06-07 09:34 | Inpatient (IN) | payer OTHER ==
[2018-06-07 09:53] VITALS: BMI 23.9
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
[2018-06-07] MEDS ORDERED: guaiFENesin/D-METHORPHAN HB 10 ML UNIT-DOSE CUPS PO PRN (10:53)
[2018-06-07] MEDS ORDERED: IBUPROFEN 400 MG TABLET (FP) PO PRN (10:53)
[2018-06-07] MEDS ORDERED: LOPERAMIDE HCL 2 MG CAPSULE PO PRN (10:53)
[2018-06-07] MEDS ORDERED: MENTHOL/PHENOL 1 EACH UD MM PRN (10:53)
[2018-06-07] MEDS ORDERED: MAGNESIUM HYDROX 2400MG/30ML ORAL SUSPENSION 30 ML CUP PO PRN (10:53)
[2018-06-07] MEDS ORDERED: P-EPHED 60MG/TRIPROLIDI 2.5MG TABLET PO PRN (10:53)
[2018-06-07] MEDS ORDERED: ACETAMINOPHEN 325 MG TABLET (FP) PO PRN (10:53)
[2018-06-07] MEDS ORDERED: MAGNESIUM CITRATE 300 ML BOTTLE PO PRN (10:53)
[2018-06-07] MEDS ORDERED: NICOTINE POLACRILEX 2 MG GUM BUC PRN (10:53)
[2018-06-07] MEDS ORDERED: hydrOXYzine PAMOATE 25 MG CAPSULE (FP) PO PRN (10:53)
[2018-06-07] MEDS ORDERED: MAG HYDROX/AL HYDROX/SIMETH 30 ML UNIT-DOSE CUP PO PRN (10:53)
[2018-06-07] MEDS ORDERED: METHADONE HCL 10 MG TABLET (FOR DETOX USE ONLY) PO ONE ×2 (11:20→23:00)
[2018-06-07] MEDS: NICOTINE 14 MG/24 HOURS TOPICAL PATCH TD SCH (12:45)
[2018-06-07] MEDS: diazePAM 5 MG TABLET PO PRN ×3 (12:45→22:20)
--- NOTE | 2018-06-07 17:06 | EKG ---
Test Reason : Blood Pressure : / mmHG Vent. Rate : 052 BPM Atrial Rate : 052 BPM P-R Int : 164 ms QRS Dur : 100 ms QT Int : 418 ms P-R-T Axes : 057 069 059 degrees QTc Int : 388 ms SINUS BRADYCARDIA OTHERWISE NORMAL ECG WHEN COMPARED WITH ECG OF 08-SEP-2017 17:08, NO SIGNIFICANT CHANGE WAS FOUND Confirmed by MD BRITTNEY, RINA ([id number]) on 06/07/2018 5:05:36 PM Referred By: Confirmed By:RINA LUGO MD
--- NOTE | 2018-06-07 18:35 | CONSULT ---
[facility] Psychiatric Consult - Data Date of interview: 06/07/18 Admission source: [facility] Identifying data: Re-admission to [facility] for this 32 y/o male seeking detoxification treatment on . Drugs of abuse : heroin,cocaine ( crack) and marijuana. 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 Substance Abuse History: Confirmed by the patient in this interview. Details in the current [facility] report : Smoking history: Current every day smoker. Have you smoked in the past 12 months: Yes. Aproximately how many cigarettes per day: 4. Cigars Per Day: 0. Hx Chewing Tobacco Use: No. Initiated information on smoking cessation: Yes. 'Breaking Loose' booklet given: 06/07/18. - Substance & Tx. History. Hx Alcohol Use: No. Hx Substance Use: Yes. Substance Use Type : Heroin, Marijuana. Hx Substance Use Treatment: Yes ([facility] 09/08/17 to 09/13/17 ). - Substances Abused. Heroin. Route: Injection. Frequency: Daily. Amount used: 10bgs. Age of first use: 22. Date of Last Use: 06/07/18. Marijuana/Hashish. Route: Smoking. Frequency: Daily. Amount used: $5. Age of first use: 13. Date of Last Use: 06/07/18 Medical History: Past history of arthroscopic surgery (right knee) and a distant antecedent of rhabdomyolysis (leading to acute renal failure corrected with hemodialysis). Psychiatric History: Patient denies history of psychiatric hospitalizations.No history of psychiatric OPD care.Mr Bhat denies history of suicide attempts. Physical/Sexual Abuse/Trauma History: Patient denies. Additional Comment: Urine Drug Screen Results: THC-Marijuana, OPI-Opiates, OXY- Oxycodone, FEN-Fentanyl.Noted. Mental Status Exam - Mental Status Exam Alert and Oriented to: Time, Place, Person Cognitive Function: Good Patient Appearance: Well Groomed Mood: Hopeful, Euthymic Affect: Appropriate, Normal Range Patient Behavior: Appropriate, Cooperative Speech Pattern: Clear, Appropriate Voice Loudness: Normal Thought Process: Intact, Goal Oriented Thought Disorder: Not Present Hallucinations: Denies Suicidal Ideation: Denies Homicidal Ideation: Denies Insight/Judgement: Poor Sleep: Well Appetite: Good Muscle strength/Tone: Normal Gait/Station: Normal Psychiatric Findings - Problem List ([place] 1, 2,3) (1) Opioid dependence with withdrawal Current Visit: Yes Status: Acute (2) Cannabis dependence, uncomplicated Current Visit: Yes Status: Acute Comment: counseled cessation is necessary (3) Nicotine dependence Current Visit: Yes Status: Acute Qualifiers: Nicotine product type: cigarettes Substance use status: uncomplicated Qualified Code(s): F17.210 - Nicotine dependence, cigarettes, uncomplicated - Initial Treatment Plan Initial Treatment Plan: Psychoeducation.Sleep hygiene.Detoxification.psychotherapy : group + individual + supportive + recreational. Observation.
[2018-06-07 20:02] LABS: URINE APPEARANCE SLCLOUDY; URINE BILIRUBIN NEGATIVE (<2.0 mg/dL); URINE COLOR DKYELLOW; URINE GLUCOSE (UA) NEGATIVE (NEGATIVE); URINE KETONE TRACE (NEGATIVE); URINE LEUK ESTERASE NEGATIVE (NEGATIVE); URINE NITRITE NEGATIVE (NEGATIVE); URINE PROTEIN NEGATIVE (NEGATIVE)
[2018-06-07] MEDS: THIAMINE HCL 100 MG TABLET (FP) PO SCH (22:19)
[2018-06-07] MEDS: cloNIDine HCL 0.1 MG TABLET PO SCH (22:20)
[2018-06-07] MEDS: MELATONIN 5 MG TABLETS PO PRN (22:20)
[2018-06-07] MEDS: CYCLOBENZAPRINE HCL 10 MG TABLET (FP) PO PRN (22:20)
[2018-06-08] MEDS: diazePAM 5 MG TABLET PO PRN ×3 (09:30→22:25)
[2018-06-08] MEDS ORDERED: METHADONE HCL 10 MG TABLET (FOR DETOX USE ONLY) PO ONE (10:00)
[2018-06-08] MEDS: PRENATAL VITAMINS W/ FOLIC ACID TABLET (FP) PO SCH (10:09)
[2018-06-08] MEDS: cloNIDine HCL 0.1 MG TABLET PO SCH ×2 (10:09→22:25)
[2018-06-08] MEDS: NICOTINE 14 MG/24 HOURS TOPICAL PATCH TD SCH (10:10)
[2018-06-08 10:30] LABS: HEMATOCRIT 46.5 % (35.4-49); HEMOGLOBIN 15.4 GM/dL (11.7-16.9); MCH 28.3 pg (25.7-33.7); MEAN CELL VOLUME 85.8 fl (80-96); MEAN PLT VOLUME 9.7 fl (7.5-11.1); PLATELET COUNT 251 K/MM3 (134-434); RBC 5.42 M/mm3 (4.00-5.60); RDW 13.3 % (11.9-15.9); WHITE BLOOD COUNT 7.8 K/mm3 (4.0-10.0)
[2018-06-08 10:57] LABS: ALBUMIN 4.1 g/dl (3.4-5.0); ALK PHOS 90 U/L (45-117); ANION GAP 4 MMOL/L (8-16); BILIRUBIN,TOTAL 0.3 mg/dL (0.2-1); BLOOD UREA NITROGEN 14 mg/dL (7-18); CALCIUM 10.4 mg/dL (8.5-10.1); CHLORIDE 99 mmol/L (98-107); CO2 36 mmol/L (21-32); CREATININE 1.1 mg/dL (0.55-1.3); GLUCOSE,RANDOM 90 mg/dL (74-106); POTASSIUM 4.8 mmol/L (3.5-5.1); SGOT/AST 22 U/L (15-37); SGPT/ALT 30 U/L (13-61); SODIUM 139 mmol/L (136-145); TOT PROT 8.3 g/dl (6.4-8.2)
--- NOTE | 2018-06-08 11:33 | PN ---
S CIWA - CIWA Score Nausea/Vomitin-Mild Nausea/No Vomiting Muscle Tremors: None Anxiety: 2 Agitation: 2 Paroxysmal Sweats: 2 Orientation: 0-Oriented Tacttile Disturbances: 0-None Auditory Disturbances: 0-None Visual Disturbances: 0-None Headache: 1-Very Mild CIWA-Ar Total Score: 8 [facility] Progress Note (SOAP) Subjective: PATIENT C/O MILD HEADACHE, NAUSEA AND ANXIETY/RESTLESSNESS. Objective: 06/08/18 11:31 Laboratory Tests 06/07/18 06/08/18 06/08/18 15:50 06:00 06:00 WBC 7.8 RBC 5.42 Hgb 15.4 Hct 46.5 MCV 85.8 MCH 28.3 MCHC 33.0 RDW 13.3 Plt Count 251 D MPV 9.7 Sodium 139 Potassium 4.8 Chloride 99 Carbon Dioxide 36 H Anion Gap 4 L BUN 14 Creatinine 1.1 Creat Clearance w eGFR > 60 Random Glucose 90 Calcium 10.4 H Total Bilirubin 0.3 AST 22 ALT 30 Alkaline Phosphatase 90 Total Protein 8.3 H Albumin 4.1 Urine Color Dkyellow Urine Appearance Slcloudy Urine pH 5.0 D Ur Specific [place] 1.026 Urine Protein Negative Urine Glucose (UA) Negative Urine Ketones Trace H Urine Blood Negative Urine Nitrite Negative Urine Bilirubin Negative Urine Urobilinogen 2.0 Ur Leukocyte Esterase Negative PE: ALERT AND ORIENTED SKIN WARM AND MOIST CAR S1S2 RESP CTA BL EXT FULL ROM, AMB AD ARACELIS Assessment: 06/08/18 11:32 WITHDRAWAL SYNDROME Plan: CONTINUE DETOX ORDERED ENCOURAGE ORAL FLUIDS CONTINUE TO MONITOR CLINICALLY
[2018-06-08] MEDS ORDERED: PNEUMOC 13-VAL CONJ-DIP CRM/PF 0.5 ML DISP.SYRIN IM ONE (12:00)
[2018-06-08] MEDS ORDERED: PNEUMOCOCCAL 23 VACCINE 0.5 ML VIAL IM ONE (12:00)
[2018-06-08] MEDS ORDERED: FLU VACCINE QUAD 60 MCG/0.5 ML (MDV 18-19) IM ONE (12:00)
[2018-06-08] MEDS: THIAMINE HCL 100 MG TABLET (FP) PO SCH (22:25)
[2018-06-08] MEDS: MELATONIN 5 MG TABLETS PO PRN (22:25)
[2018-06-08] MEDS: CYCLOBENZAPRINE HCL 10 MG TABLET (FP) PO PRN (22:25)
[2018-06-09] MEDS: diazePAM 5 MG TABLET PO PRN ×3 (09:48→22:06)
[2018-06-09] MEDS: PRENATAL VITAMINS W/ FOLIC ACID TABLET (FP) PO SCH (09:48)
[2018-06-09] MEDS: NICOTINE 14 MG/24 HOURS TOPICAL PATCH TD SCH (09:49)
[2018-06-09] MEDS ORDERED: METHADONE HCL 5 MG TABLET (FOR DETOX USE ONLY) PO ONE (10:00)
[2018-06-09] MEDS: cloNIDine HCL 0.1 MG TABLET PO SCH ×2 (10:26→22:06)
--- NOTE | 2018-06-09 11:49 | PN ---
S CIWA - CIWA Score Nausea/Vomitin-No Nausea/No Vomiting Muscle Tremors: None Anxiety: 2 Agitation: 2 Paroxysmal Sweats: 3 Orientation: 0-Oriented Tacttile Disturbances: 0-None Auditory Disturbances: 0-None Visual Disturbances: 0-None Headache: 0-None Present CIWA-Ar Total Score: 7 [facility] Progress Note (SOAP) Subjective: PATIENT C/O CHILLS/SWEATING AT NIGHT, ANXIETY AND RESTLESSNESS AT TIMES. Objective: 06/09/18 11:48 Laboratory Tests 06/07/18 06/08/18 06/08/18 15:50 06:00 06:00 WBC 7.8 RBC 5.42 Hgb 15.4 Hct 46.5 MCV 85.8 MCH 28.3 MCHC 33.0 RDW 13.3 Plt Count 251 D MPV 9.7 Sodium 139 Potassium 4.8 Chloride 99 Carbon Dioxide 36 H Anion Gap 4 L BUN 14 Creatinine 1.1 Creat Clearance w eGFR > 60 Random Glucose 90 Calcium 10.4 H Total Bilirubin 0.3 AST 22 ALT 30 Alkaline Phosphatase 90 Total Protein 8.3 H Albumin 4.1 Urine Color Dkyellow Urine Appearance Slcloudy Urine pH 5.0 D Ur Specific [place] 1.026 Urine Protein Negative Urine Glucose (UA) Negative Urine Ketones Trace H Urine Blood Negative Urine Nitrite Negative Urine Bilirubin Negative Urine Urobilinogen 2.0 Ur Leukocyte Esterase Negative RPR Titer 06/08/18 06:00 WBC RBC Hgb Hct MCV MCH MCHC RDW Plt Count MPV Sodium Potassium Chloride Carbon Dioxide Anion Gap BUN Creatinine Creat Clearance w eGFR Random Glucose Calcium Total Bilirubin AST ALT Alkaline Phosphatase Total Protein Albumin Urine Color Urine Appearance Urine pH Ur Specific [place] Urine Protein Urine Glucose (UA) Urine Ketones Urine Blood Urine Nitrite Urine Bilirubin Urine Urobilinogen Ur Leukocyte Esterase RPR Titer Nonreactive Vital Signs Temperature 99.4 F 06/09/18 09:30 Pulse Rate 60 06/09/18 09:30 Respiratory Rate 20 06/09/18 09:30 Blood Pressure 112/72 06/09/18 09:30 O2 Sat by Pulse Oximetry (%) PE; ALERT AND ORIENTED X 3 SKIN WARM AND DRY CAR S1S2 RESP CTA BL EXT FULL ROM PACING IN HALLWAY Assessment: 06/09/18 11:49 WITHDRAWAL SYNDROME Plan: CONTINUE ORAL FLUIDS AND DETOX CONTINUE TO MONITOR CLINICALLY
[2018-06-09] MEDS: THIAMINE HCL 100 MG TABLET (FP) PO SCH (22:05)
[2018-06-09] MEDS: MELATONIN 5 MG TABLETS PO PRN (22:06)
[2018-06-09] MEDS: CYCLOBENZAPRINE HCL 10 MG TABLET (FP) PO PRN (22:06)
[2018-06-10] MEDS: diazePAM 5 MG TABLET PO PRN ×2 (05:25→10:11)
[2018-06-10] MEDS: CYCLOBENZAPRINE HCL 10 MG TABLET (FP) PO PRN ×2 (05:25→22:21)
[2018-06-10] MEDS ORDERED: METHADONE HCL 5 MG TABLET (FOR DETOX USE ONLY) PO ONE (10:00)
[2018-06-10] MEDS: PRENATAL VITAMINS W/ FOLIC ACID TABLET (FP) PO SCH (10:09)
[2018-06-10] MEDS: cloNIDine HCL 0.1 MG TABLET PO SCH ×2 (10:09→22:21)
[2018-06-10] MEDS: NICOTINE 14 MG/24 HOURS TOPICAL PATCH TD SCH (10:12)
--- NOTE | 2018-06-10 11:54 | PN ---
[facility] Progress Note Note: PATIENT CONTINUES WITH DETOX REGIMEN. REPORTS FEELING BETTER BUT STILL HAS INTERMITTENT COLD SWEATS. Vital Signs Temperature 97.9 F 06/10/18 09:12 Pulse Rate 78 06/10/18 09:12 Respiratory Rate 18 06/10/18 09:12 Blood Pressure 117/80 06/10/18 09:12 O2 Sat by Pulse Oximetry (%) Laboratory Tests 06/07/18 06/08/18 06/08/18 15:50 06:00 06:00 WBC 7.8 RBC 5.42 Hgb 15.4 Hct 46.5 MCV 85.8 MCH 28.3 MCHC 33.0 RDW 13.3 Plt Count 251 D MPV 9.7 Sodium 139 Potassium 4.8 Chloride 99 Carbon Dioxide 36 H Anion Gap 4 L BUN 14 Creatinine 1.1 Creat Clearance w eGFR > 60 Random Glucose 90 Calcium 10.4 H Total Bilirubin 0.3 AST 22 ALT 30 Alkaline Phosphatase 90 Total Protein 8.3 H Albumin 4.1 Urine Color Dkyellow Urine Appearance Slcloudy Urine pH 5.0 D Ur Specific [place] 1.026 Urine Protein Negative Urine Glucose (UA) Negative Urine Ketones Trace H Urine Blood Negative Urine Nitrite Negative Urine Bilirubin Negative Urine Urobilinogen 2.0 Ur Leukocyte Esterase Negative RPR Titer 06/08/18 06:00 WBC RBC Hgb Hct MCV MCH MCHC RDW Plt Count MPV Sodium Potassium Chloride Carbon Dioxide Anion Gap BUN Creatinine Creat Clearance w eGFR Random Glucose Calcium Total Bilirubin AST ALT Alkaline Phosphatase Total Protein Albumin Urine Color Urine Appearance Urine pH Ur Specific [place] Urine Protein Urine Glucose (UA) Urine Ketones Urine Blood Urine Nitrite Urine Bilirubin Urine Urobilinogen Ur Leukocyte Esterase RPR Titer Nonreactive ALERT AND ORIENTED SKIN WARM AND DRY AMB AD ARACELIS EXT FULL ROM, NO TREMORS A/P WITHDRAWAL SX CONTINUE DETOX ORDERED ENCOURAGE ORAL FLUIDS CONTINUE TO MONITOR
[2018-06-10] MEDS: MELATONIN 5 MG TABLETS PO PRN (22:21)
[2018-06-10] MEDS: THIAMINE HCL 100 MG TABLET (FP) PO SCH (22:21)
[2018-06-11 09:53] VITALS: BP 110/71; PULSE 63; TEMP 98.9
[2018-06-11] MEDS ORDERED: METHADONE HCL 10 MG TABLET (FOR DETOX USE ONLY) PO ONE (10:00)
[2018-06-11] MEDS: cloNIDine HCL 0.1 MG TABLET PO SCH (10:07)
[2018-06-11] MEDS: PRENATAL VITAMINS W/ FOLIC ACID TABLET (FP) PO SCH (10:07)
[2018-06-11] MEDS: NICOTINE 14 MG/24 HOURS TOPICAL PATCH TD SCH (10:08)
--- NOTE | 2018-06-11 12:00 | PN ---
[facility] Progress Note Note: PATIENT CONTINUES WITH DETOX REGIMEN. STATES " I FEEL GOOD TODAY". Vital Signs Temperature 98.9 F 06/11/18 09:53 Pulse Rate 63 06/11/18 09:53 Respiratory Rate 18 06/11/18 09:53 Blood Pressure 110/71 06/11/18 09:53 O2 Sat by Pulse Oximetry (%) Laboratory Tests 06/07/18 06/08/18 06/08/18 15:50 06:00 06:00 WBC 7.8 RBC 5.42 Hgb 15.4 Hct 46.5 MCV 85.8 MCH 28.3 MCHC 33.0 RDW 13.3 Plt Count 251 D MPV 9.7 Sodium 139 Potassium 4.8 Chloride 99 Carbon Dioxide 36 H Anion Gap 4 L BUN 14 Creatinine 1.1 Creat Clearance w eGFR > 60 Random Glucose 90 Calcium 10.4 H Total Bilirubin 0.3 AST 22 ALT 30 Alkaline Phosphatase 90 Total Protein 8.3 H Albumin 4.1 Urine Color Dkyellow Urine Appearance Slcloudy Urine pH 5.0 D Ur Specific [place] 1.026 Urine Protein Negative Urine Glucose (UA) Negative Urine Ketones Trace H Urine Blood Negative Urine Nitrite Negative Urine Bilirubin Negative Urine Urobilinogen 2.0 Ur Leukocyte Esterase Negative RPR Titer 06/08/18 06:00 WBC RBC Hgb Hct MCV MCH MCHC RDW Plt Count MPV Sodium Potassium Chloride Carbon Dioxide Anion Gap BUN Creatinine Creat Clearance w eGFR Random Glucose Calcium Total Bilirubin AST ALT Alkaline Phosphatase Total Protein Albumin Urine Color Urine Appearance Urine pH Ur Specific [place] Urine Protein Urine Glucose (UA) Urine Ketones Urine Blood Urine Nitrite Urine Bilirubin Urine Urobilinogen Ur Leukocyte Esterase RPR Titer Nonreactive SKIN WARM AND DRY ALERT AND ORIENTED X 3 EXT FULL ROM AMB AD ARACELIS A/P WITHDRAWAL SX CONTINUE DETOX ENCOURAGE ORAL FLUIDS CONTINUE TO MONITOR
--- NOTE | 2018-06-11 14:31 | DS ---
[facility] Detox Discharge Summary Admission Date: 06/07/18 Discharge Date: 06/11/18 - History Present History: Opioid Dependence - Physical Exam Results Vital Signs: Vital Signs Temperature 98.9 F 06/11/18 09:53 Pulse Rate 63 06/11/18 09:53 Respiratory Rate 18 06/11/18 09:53 Blood Pressure 110/71 06/11/18 09:53 O2 Sat by Pulse Oximetry (%) Pertinent Admission Physical Exam Findings: PATIENT REQUESTED TO SIGN OUT AMA. ENCOURAGED BY STAFF TO COMPLETE DETOX BUT PATIENT REFUSED TO STAY. PATIENT MEDICALLY STABLE. DENIES SI/HI. PATIENT ADVISED TO ATTEND GROUP MEETINGS/NA TO PREVENT RELAPSE AND TO SEEK MEDICAL ATTENTION IF WITHDRAWAL SX OCCUR. PATIENT ALSO EDUCATED REGARDING RISK FACTORS OF AND RELAPSE WITH SIGNING OUT AMA. - Medication Discharge Medications: Ambulatory Orders NK [No Known Home Medication] 06/07/18 - Diagnosis (1) Opioid dependence with withdrawal Status: Acute - AMA Did Patient Leave Against Medical Advice: Yes
[2018-06-12] MEDS ORDERED: METHADONE HCL 5 MG TABLET (FOR DETOX USE ONLY) PO ONE (06:00)
== END 2018-06-11 12:48 | disposition left against medical advice (07) | DRG 770 ==
LOC: YASAS 09:34 → Y3N 10:53
PROC: HZ2ZZZZ Detoxification Services for Substance Abuse Treatment (ICD-10-PCS; principal; 2018-06-07)
DX: F11.23 Opioid dependence with withdrawal (principal); F12.20 Cannabis dependence, uncomplicated; F17.210 Nicotine dependence, cigarettes, uncomplicated; F41.8 Other specified anxiety disorders; F32.9 Major depressive disorder, single episode, unspecified; R63.4 Abnormal weight loss; Z68.23 Body mass index [BMI] 23.0-23.9, adult
CPT/HCPCS: 36415; 80053; 81003; 85027; 86593; 93005; 93010; J0735